=== PATIENT | female | born 1950 | race Caucasian/White ===

== ENCOUNTER 2016-04-15 09:12 | Outpatient (CLI) ==
[2016-03-20 15:54] VITALS: BMI 26.9
--- NOTE | 2016-04-15 09:55 | CT ---
EXAM: CT of the chest with contrast History: Tobacco use Comparison: Chest radiograph 03/20/2016 Technique: Multiplanar CT images through the thorax were obtained following administration of IV co ntrast Findings: Heart size is within normal limits. No pericardial effusion. Great vessels are unremark able. No pathologically enlarged thoracic lymph nodes. Moderate to severe emphysema. Biapical lung opacities, greater on the right most likely due to scar ring. No consolidated pneumonia. Calcified granulomas seen within the lungs. No pleural effusion and no pneumothorax. 5 mm left upper lobe lung nodule axial image 12. 5 mm left upper lobe lung no dule axial image 25. 5 mm lingular nodule axial image 38. Within the visualized upper abdomen, no acute findings. Atherosclerotic and soft plaque within the visualized abdominal aorta. Subacute appearing compression fracture at T5. Impression: 1. No evidence for pneumonia. 2. Moderate to severe emphysema. 3. Biapical lung scarring. 4. Indeterminate sub-centimeter left lung nodules. Recommend follow-up chest CT in 6 months. 6. Subacute appearing compression fracture at T5.
== END 2016-04-15 09:13 | disposition home or self-care (01) ==
LOC: RAD 09:12
PROVIDERS: ATTEND Nurse Practitioner Family
DX: R93.8 Abnormal findings on diagnostic imaging of other specified body structures (principal); Z72.0 Tobacco use

== ENCOUNTER 2016-05-01 17:18 | Inpatient (IN) ==
[2016-05-01] MEDS ORDERED: SOLU-MEDROL 125 MG IVP STA (17:23)
[2016-05-01] MEDS ORDERED: DUONEB NEB STA (17:23)
[2016-05-01] MEDS ORDERED: DUONEB NEB ONE (17:24)
[2016-05-01] MEDS ORDERED: ALBUTEROL 0.083% NEB NEB STA (17:33)
[2016-05-01] MEDS ORDERED: ALBUTEROL 0.083% NEB NEB ONE (17:34)
[2016-05-01] MEDS ORDERED: LASIX IVP STA (17:38)
[2016-05-01 17:40] LABS: ABG BASE EXCESS 0 (-2.0-2.0); ABG HCO3 26.4 (22.0-26.0); ABG PCO2 50.6 mmHg (35-45); ABG PH 7.325 (7.35-7.45); ABG TCO2 28 (22.0-28.0)
[2016-05-01 17:48] LABS: BASOPHILS # (AUTO) 0.1 K/uL (0-0.2); BASOPHILS % (AUTO) 0.6 % (0.0-3.0); EOSINOPHILS # (AUTO) 0.2 K/ul (0.0-0.7); EOSINOPHILS % (AUTO) 1.9 % (0.0-7.0); HEMATOCRIT 42.7 % (37.0-47.0); IMMATURE GRANULOCYTE % (AUTO) 0.3 % (0.0-5.0); MEAN CORPUSCULAR HEMOGLOBIN 26.8 pg (27.0-31.0); MEAN CORPUSCULAR HGB CONC 30.4 (31.8-35.4); MONOCYTES # (AUTO) 0.5 K/uL (0.4-2.0); MONOCYTES % (AUTO) 4.4 (0-10); NEUTROPHILS # (AUTO) 7.7 K/ul (2.0-6.9); NEUTROPHILS % (AUTO) 73.8; PLATELET COUNT 322 10^3/uL (140-440); RED BLOOD COUNT 4.85 10^6/ul (4.20-5.40); WHITE BLOOD COUNT 10.41 K/ul (4.6-10.2)
[2016-05-01 18:15] LABS: ALBUMIN 2.7 g/dL (3.4-5.0); ALBUMIN/GLOBULIN RATIO 0.73; ANION GAP 15.3; BILIRUBIN,TOTAL 0.27 mg/dL (0.00-1.20); BUN/CREATININE RATIO 14.77; CALCIUM 9.1 mg/dL (8.2-10.2); CREATININE 0.88 mg/dL (0.60-1.30); POTASSIUM 3.3 mmol/L (3.5-5.10); TOTAL PROTEIN 6.4 g/dL (5.8-8.1); TROPONIN I 0.045 ng/ml (0.0000-0.4000)
--- NOTE | 2016-05-01 18:26 | ED.PDOC ---
General ED Provider: Dr. NESSA AGUILAR Chief Complaint: Shortness of Air Stated Complaint: Pateint has a history of chronic lung disease and has had a recent CT scan of chest. Comes to the ER with shortness of breath over the past 2 days. She admits to smoking. Also compalins of a cough and has been on multiple antibiotics recently. Time Seen by Physician: 18:23 Mode of Arrival: Wheelchair Information Source: Patient, Family Exam Limitations: No limitations Primary Care Provider: JAMAR NUNEZ Nursing and Triage Documentation Reviewed and Agree: Yes Respiratory Complaint Exam - Respiratory Complaint/Exam Onset/Duration: 2 days Symptoms Are: Still present Timing: Constant Initial Severity: Moderate Current Severity: Severe Location: Chest Character: Reports: Productive cough Aggravating: Reports: URI, Passive smoke exposure, Weather Alleviating: Reports: None Associated Signs and Symptoms: Reports: Rapid breathing, Dyspnea. Denies: Chest pain, Sinus discomfort, Vomiting, Sore throat, Weight loss Cardiac Risk Factors: Reports: CAD, Smoking Pseudomonas Risk Factors: Reports: Chronic Lung Disease Status Asthmaticus Risk Factors: Reports: Recent steriods, Smoke exposure. Denies: Prior Intubation Home Oxygen Use: No Recent Stress Test: No Recent Echo/LV Function: No Current Antibiotic Use: No Current Asthma Medication Use: Yes Respiratory Distress: None Inadequate Respiratory Effort: No Dysphagia Present: No Stridor Present: No JVD Present: No Accessory Muscle Use: Yes Diminished Breath Sounds: No Sinus Tenderness: None Differential Diagnoses: COPD Exacerbation Review of Systems - Review Of Systems Constitutional: Reports: No symptoms Eyes: Reports: No symptoms Ears, Nose, Mouth, Throat: Reports: No symptoms Respiratory: Reports: Cough, Short of air, Wheezing Cardiac: Denies: Chest pain GI: Reports: No symptoms : Reports: No symptoms Musculoskeletal: Reports: No symptoms Skin: Reports: No symptoms Neurological: Reports: Anxiety Endocrine: Reports: No symptoms Hematologic/Lymphatic: Reports: No symptoms All Other Systems: Reviewed and Negative Past Medical History - Past Medical History Previously Healthy: No Endocrine: Reports: Hypothyroid Cardiovascular: Reports: Hypertension Respiratory: Reports: COPD Hematological: Reports: None Gastrointestinal: Reports: None Genitourinary: Reports: None Neuro/Psych: Reports: None Musculoskeletal: Reports: Arthritis Cancer: Reports: None Last Menstrual Period: NONE - Surgical History General Surgical History: Reports: Appendectomy, Unknown - Family History Family History: Reports: Unknown - Social History Smoking Status: Current every day smoker Hx Substance Use: No Alcohol Screening: None Physical Exam - Physical Exam Appearance: Ill-appearing, Thin Respiratory: Wheezes Cardiovascular: Tachycardia Psychiatric: Anxious Interpretation - Radiology Interpretation Radiology Interpretation By: ED Physician Radiology Results: Negative Exam Interpreted: Portable CXR - EKG Interpretation Time of EKG #1: 17:49 Rate: Tachy Rhythm: Sinus Ectopy: None Gackle: Right ST Segment: Normal Interpretation: Pulmonary disease partten. Re-Evaluation - Re-Evaluation Time of Re-Evaluation: 18:49 Status: Improved Vital Signs Stable: Yes (106/74, Sat 96% 2 L) Appearance: NAD Lungs: Other (mild wheezing. better than prior) Physician Notification - Case Discussed Physician Notified: Dr Becerra Time of Notification: 18:30 (Ok to Admit ) Critical Care Note - Critical Care Note Total Time (mins): 30 Course - Course Hematology/Chemistry: 05/04/16 04:39 05/04/16 04:39 Orders, Labs, Meds: Lab Review 05/01/16 05/01/16 17:23 17:45 WBC 10.41 H RBC 4.85 Hgb 13.0 Hct 42.7 MCV 88.0 MCH 26.8 L MCHC 30.4 L RDW Coeff of Eze 15.5 H Plt Count 322 Immature Gran % (Auto) 0.3 Neut % (Auto) 73.8 Lymph % (Auto) 19.0 Dare % (Auto) 4.4 Eos % (Auto) 1.9 Baso % (Auto) 0.6 Immature Gran # (Auto) 0.0 Neut # 7.7 H Lymph # 2.0 Dare # 0.5 Eos # 0.2 Baso # 0.1 Puncture Site Lrad O2 Saturation 99.0 ABG pH 7.325 L ABG pCO2 50.6 H ABG pO2 148.0 H ABG HCO3 26.4 H ABG Total CO2 28 ABG Base Excess 0 Darrin Test + O2 Delivery Device Neb Oxygen Liter Flow 8.00 Sodium 137 Potassium 3.3 L Chloride 100 Carbon Dioxide 25 Anion Gap 15.3 BUN 13 Creatinine 0.88 Estimated GFR (MDRD) 65.00 BUN/Creatinine Ratio 14.77 Glucose 312 H Calcium 9.1 Total Bilirubin 0.27 AST 17 ALT 14 Alkaline Phosphatase 98 Total Creatine Kinase 54 Troponin I 0.0450 B-Natriuretic Peptide 98 Total Protein 6.4 Albumin 2.7 L Globulin 3.7 Albumin/Globulin Ratio 0.73 Orders Category Date Time Status ADMIT PATIENT INPATIENT .TO SCU (MONITORED BED) ADMISSION 05/01/16 18:37 Completed ABG DRAW REQUEST Stat CARDIO 05/01/16 17:23 Completed EKG-(ED ONLY) Stat CARDIO 05/01/16 17:22 Completed NEBULIZER TREATMENT Routine CARDIO 05/01/16 17:34 Completed NEBULIZER TREATMENT Stat CARDIO 05/01/16 17:23 Completed NEBULIZER TREATMENT Stat CARDIO 05/01/16 17:34 Completed ACTIVITY .Up ad Maliha CARE 05/01/16 18:38 Active INTAKE & OUTPUT Q8HR CARE 05/01/16 18:37 Completed TELEMETRY MONITORING TELE CARE 05/01/16 18:38 Active VITAL SIGNS Q4HR CARE 05/01/16 18:38 Active REGULAR DIET DIETARY 05/01/16 Breakfast Ordered ABG Stat LAB 05/01/16 17:23 Completed B-TYPE NATRIURETIC PEPTIDE Stat LAB 05/01/16 17:45 Completed BASIC METABOLIC PANEL DAILY@0600 LAB 05/02/16 04:53 Completed BASIC METABOLIC PANEL DAILY@0600 LAB 05/03/16 04:26 Completed BASIC METABOLIC PANEL DAILY@0600 LAB 05/04/16 04:39 Completed BASIC METABOLIC PANEL DAILY@0600 LAB 05/05/16 06:00 Ordered CBC W/ AUTO DIFF DAILY@0600 LAB 05/02/16 04:53 Completed CBC W/ AUTO DIFF DAILY@0600 LAB 05/03/16 04:26 Completed CBC W/ AUTO DIFF DAILY@0600 LAB 05/04/16 04:39 Completed CBC W/ AUTO DIFF DAILY@0600 LAB 05/05/16 06:00 Ordered CBC W/ AUTO DIFF Stat LAB 05/01/16 17:45 Completed COMPREHENSIVE METABOLIC PANEL Stat LAB 05/01/16 17:45 Completed CREATINE KINASE Stat LAB 05/01/16 17:45 Completed TROPONIN I Stat LAB 05/01/16 17:45 Completed Acetaminophen [Tylenol] MEDS 05/01/16 18:37 Active 650 mg PO Q4H PRN Albuterol Sulfate 0.083% Neb [Albuterol 0.083% Neb] MEDS 05/01/16 17:34 Discontinued 4 vial NEB .STK-MED ONE Albuterol Sulfate 0.083% Neb [Albuterol 0.083% Neb] MEDS 05/01/16 17:33 Discontinued 4 vial NEB ONCE STA Atorvastatin Calcium [Lipitor] MEDS 05/02/16 09:00 Active 10 mg PO DAILY Azithromycin [Zithromax] MEDS 05/02/16 18:40 Active 250 mg PO DAILY Azithromycin [Zithromax] MEDS 05/01/16 18:37 Discontinued 500 mg PO ONCE STA Budesonide/Formoterol Fumarate [Symbicort 160-4.5 Mcg MEDS 05/01/16 21:00 Active Inhaler] 2 puff IH BID Enoxaparin Sodium [Lovenox] MEDS 05/02/16 09:00 Active 40 mg SUBCUT DAILY Furosemide [Lasix] MEDS 05/01/16 17:38 Discontinued 20 mg IVP ONCE STA Hydroxychloroquine Sulfate [Hydroxychloroquine Sulfate] MEDS 05/01/16 21:00 Discontinued 200 mg PO BID Ipratropium/Albuterol Neb [Duoneb] MEDS 05/01/16 17:24 Discontinued 1 vial NEB .STK-MED ONE Ipratropium/Albuterol Neb [Duoneb] MEDS 05/01/16 17:23 Discontinued 1 vial NEB ONCE STA Levothyroxine Sodium [Synthroid] MEDS 05/02/16 09:00 Discontinued 88 mcg PO DAILY Lisinopril [Zestril] MEDS 05/02/16 09:00 Active 10 mg PO DAILY Methylprednisolone Sod Succ/Pf [Solu-Medrol 125 mg] MEDS 05/01/16 17:23 Discontinued 125 mg IVP ONCE STA Methylprednisolone Sod Succ/Pf [Solu-Medrol 125 mg] MEDS 05/01/16 21:00 Discontinued 125 mg IVP Q8HR Morphine Sulfate [Morphine 2 mg/ml Syringe] MEDS 05/01/16 18:37 Active 2 mg IVP Q4H PRN Ondansetron HCl/Pf [Zofran 4 mg/2 ml] MEDS 05/01/16 18:37 Active 4 mg IVP Q6H PRN Ranitidine HCl [Zantac] MEDS 05/02/16 06:30 Active 150 mg PO BIDAC RESUSCITATION STATUS Routine OTHERS 05/01/16 18:37 Ordered CHEST, 1V AP ONLY Stat RADS 05/01/16 17:22 Completed Medications Generic Name Dose Route Start Last Admin Trade Name Freq PRN Reason Stop Dose Admin Acetaminophen 650 mg 05/01/16 18:37 Tylenol PO Q4H PRN Fever >101 Albuterol/Ipratropium 1 vial 05/01/16 18:45 Duoneb NEB RTQ2H PRN Wheezing Albuterol/Ipratropium 1 vial 05/01/16 20:00 05/04/16 14:17 Duoneb NEB 1 vial RTQID ESTRELLA Administration Atorvastatin Calcium 10 mg 05/02/16 09:00 05/04/16 08:45 Lipitor PO 10 mg DAILY ESTRELLA Administration Azithromycin 250 mg 05/02/16 18:40 05/04/16 08:45 Zithromax PO 05/05/16 09:01 250 mg DAILY ESTRELLA Administration Budesonide/Formoterol Fumarate 2 puff 05/01/16 21:00 05/04/16 08:44 Symbicort 160-4.5 Mcg Inhaler IH 2 puff BID ESTRELLA Administration Enoxaparin Sodium 40 mg 05/02/16 09:00 05/04/16 08:44 Lovenox SUBCUT 40 mg DAILY ESTRELLA Administration Hydroxychloroquine Sulfate 200 mg 05/02/16 09:00 05/04/16 08:45 Plaquenil PO 200 mg BID ESTRELLA Administration Ceftriaxone Sodium 1 gm/ 50 mls @ 75 mls/hr 05/04/16 09:00 05/04/16 08:44 Sodium Chloride IV 75 mls/hr DAILY ESTRELLA Administration Insulin Human Regular 0 unit 05/03/16 09:04 05/04/16 16:59 Humulin R SUBCUT 4 unit PRN PRN Administration hyperglycemia Protocol Leflunomide 20 mg 05/02/16 09:00 05/04/16 08:45 Arava PO 20 mg DAILY ESTRELLA Administration Levothyroxine Sodium 88 mcg 05/02/16 06:30 05/04/16 06:09 Synthroid PO 88 mcg QDAC ESTRELLA Administration Lisinopril 10 mg 05/02/16 09:00 05/04/16 08:45 Zestril PO 10 mg DAILY ESTRELLA Administration Methylprednisolone Sodium Succinate 80 mg 05/04/16 09:39 05/04/16 13:06 Solu-Medrol 125 Mg IVP 80 mg Q8HR ESTRELLA Administration Morphine Sulfate 2 mg 05/01/16 18:37 05/02/16 20:38 Morphine 2 Mg/Ml Syringe IVP 2 mg Q4H PRN Administration Severe Pain Ondansetron HCl 4 mg 05/01/16 18:37 Zofran 4 Mg/2 Ml IVP Q6H PRN Nausea / Vomiting Ranitidine HCl 150 mg 05/02/16 06:30 05/04/16 17:00 Zantac PO 150 mg BIDAC ESTRELLA Administration Sodium Chloride 1 syr 05/02/16 05:00 05/04/16 13:06 Saline Flush IVF 1 syr Q8HR ESTRELLA Administration Discontinued Medications Generic Name Dose Route Start Last Admin Trade Name Freq PRN Reason Stop Dose Admin Albuterol Sulfate 4 vial 05/01/16 17:33 05/01/16 17:46 Albuterol 0.083% Neb NEB 05/01/16 17:34 Not Given ONCE STA Albuterol/Ipratropium 1 vial 05/01/16 17:23 05/01/16 17:43 Duoneb NEB 05/01/16 17:24 Not Given ONCE STA Azithromycin 500 mg 05/01/16 18:37 05/01/16 20:33 Zithromax PO 05/01/16 18:38 500 mg ONCE STA Administration Furosemide 20 mg 05/01/16 17:38 05/01/16 17:45 Lasix IVP 05/01/16 17:39 20 mg ONCE STA Administration Ceftriaxone Sodium 1 gm/ 100 mls @ 100 mls/hr 05/02/16 14:30 05/03/16 08:50 Sodium Chloride IV 100 mls/hr DAILY ESTRELLA Administration Levothyroxine Sodium 88 mcg 05/02/16 09:00 Synthroid PO DAILY ESTRELLA Magnesium Citrate 5 oz 05/03/16 12:36 05/04/16 07:19 Citrate Of Magnesia PO 05/03/16 12:37 Not Given ONCE ONE Methylprednisolone Sodium Succinate 125 mg 05/01/16 17:23 05/01/16 17:33 Solu-Medrol 125 Mg IVP 05/01/16 17:24 125 mg ONCE STA Administration Methylprednisolone Sodium Succinate 125 mg 05/01/16 21:00 05/04/16 04:27 Solu-Medrol 125 Mg IVP 125 mg Q8HR ESTRELLA Administration Non-Formulary Medication 200 mg 05/01/16 21:00 Hydroxychloroquine Sulfate [Hydroxychloroquine Sulfate] PO BID ESTRELLA Non-Formulary Medication 200 mg 05/01/16 21:00 05/01/16 20:49 Hydroxychloroquine Sulfate [Hydroxychloroquine Sulfate] PO 200 mg BID ESTRELLA Administration Ranitidine HCl 150 mg 05/01/16 20:12 05/01/16 20:31 Zantac PO 05/01/16 20:13 150 mg ONCE STA Administration Tramadol HCl 50 mg 05/01/16 20:11 05/01/16 20:31 Ultram PO 05/01/16 20:12 50 mg ONCE STA Administration Vital Signs: Temp Pulse Resp BP Pulse Ox 05/01/16 17:19 97.6 F 120 H 26 H 157/114 H 80 L Departure - Departure Time of Disposition: 18:49 Disposition: ADMITTED INPATIENT Discharge Problem: COPD with acute exacerbation Condition: Fair Pt referred to PMD for follow-up: No (Admitted ) Allergies/Adverse Reactions: Allergies Penicillins Allergy (Severe, Verified 05/01/16 17:23) rash Pt to get medical alert necklace Home Medications: Ambulatory Orders Hydroxychloroquine Sulfate 200 mg PO BID 03/02/16 Leflunomide [Arava] 20 mg PO DAILY 03/02/16 Ipratropium/Albuterol Neb [Duoneb] 1 vial NEB RTQ8H #30 vial.neb 03/20/16 Tramadol HCl [Ultram] 50 mg PO BID 05/01/16 Disposition Discussed With: Patient, Family
[2016-05-01] MEDS ORDERED: TYLENOL PO PRN (18:37)
[2016-05-01] MEDS ORDERED: ZOFRAN 4 MG/2 ML IVP PRN (18:37)
[2016-05-01] MEDS ORDERED: ZITHROMAX PO STA (18:37)
[2016-05-01] MEDS ORDERED: DUONEB NEB PRN (18:45)
[2016-05-01] MEDS: DUONEB NEB SCH (19:30)
[2016-05-01] MEDS: SOLU-MEDROL 125 MG IVP SCH (20:09)
[2016-05-01] MEDS ORDERED: ULTRAM PO STA (20:11)
[2016-05-01] MEDS ORDERED: ZANTAC PO STA (20:12)
[2016-05-01 20:13] VITALS: BMI 31.1
--- NOTE | 2016-05-01 20:17 | DI ---
EXAM: Single view of the chest. History: Short of breath Comparison: Chest radiograph 03/20/2016 Findings: Heart size is normal. No focal consolidation. No appreciable pleural fluid and no pneum othorax. No acute osseous abnormalities. Calcified granulomas again seen within the thorax. Emphy sema and biapical scarring again noted. Impression: No acute cardiopulmonary process. Emphysema.
[2016-05-01] MEDS: MORPHINE 2 MG/ML SYRINGE IVP PRN (20:30)
[2016-05-01] MEDS: SYMBICORT 160-4.5 MCG INHALER IH SCH (20:31)
[2016-05-01] MEDS ORDERED: HYDROXYCHLOROQUINE SULFATE 200 MG PO SCH ×2 (21:00)
[2016-05-02 04:54] LABS: BASOPHILS % (AUTO) 0.4 % (0.0-3.0); HEMATOCRIT 38.9 % (37.0-47.0); HEMOGLOBIN 11.9 g/dl (12.0-16.0); IMMATURE GRANULOCYTE % (AUTO) 0.2 % (0.0-5.0); LYMPHOCYTES # (AUTO) 0.7 K/uL (0.60-3.4); LYMPHOCYTES % (AUTO) 14.9 (10.0-50.0); MEAN CORPUSCULAR HEMOGLOBIN 26.9 pg (27.0-31.0); MEAN CORPUSCULAR HGB CONC 30.6 (31.8-35.4); MEAN CORPUSCULAR VOLUME 87.8 fl (81.0-99.0); MONOCYTES # (AUTO) 0.1 K/uL (0.4-2.0); MONOCYTES % (AUTO) 1.3 (0-10); NEUTROPHILS # (AUTO) 3.8 K/ul (2.0-6.9); NEUTROPHILS % (AUTO) 83.2; PLATELET COUNT 285 10^3/uL (140-440); RED BLOOD COUNT 4.43 10^6/ul (4.20-5.40); WHITE BLOOD COUNT 4.55 K/ul (4.6-10.2)
[2016-05-02 05:12] LABS: ANION GAP 13.7; BUN/CREATININE RATIO 20.83; CALCIUM 8.9 mg/dL (8.2-10.2); CREATININE 0.72 mg/dL (0.60-1.30); POTASSIUM 3.7 mmol/L (3.5-5.10)
[2016-05-02] MEDS: DUONEB NEB SCH ×4 (05:34→19:18)
[2016-05-02] MEDS: SOLU-MEDROL 125 MG IVP SCH ×3 (05:44→20:38)
[2016-05-02] MEDS: ZANTAC PO SCH ×2 (05:45→16:49)
[2016-05-02] MEDS: SYNTHROID PO SCH (05:45)
[2016-05-02] MEDS ORDERED: LEFLUNOMIDE 20 MG PO SCH (09:00)
[2016-05-02] MEDS ORDERED: SYNTHROID PO SCH (09:00)
[2016-05-02] MEDS: ARAVA PO SCH (09:21)
[2016-05-02] MEDS: ZESTRIL PO SCH (09:22)
[2016-05-02] MEDS: PLAQUENIL PO SCH ×2 (09:22→20:37)
[2016-05-02] MEDS: LIPITOR PO SCH (09:22)
[2016-05-02] MEDS: LOVENOX SUBCUT SCH (09:23)
[2016-05-02] MEDS: SYMBICORT 160-4.5 MCG INHALER IH SCH ×2 (09:23→20:38)
[2016-05-02] MEDS ORDERED: ROCEPHIN ONE (14:18)
[2016-05-02] MEDS: ROCEPHIN 1 GM in SODIUM CHLORIDE 100 ML IV SCH (14:30)
[2016-05-02] MEDS ORDERED: SODIUM CHLORIDE 50 ML IV ONE (14:30)
[2016-05-02] MEDS: ZITHROMAX PO SCH (17:43)
[2016-05-02] MEDS: MORPHINE 2 MG/ML SYRINGE IVP PRN (20:38)
[2016-05-03 04:30] LABS: BASOPHILS % (AUTO) 0.1 % (0.0-3.0); HEMATOCRIT 37.5 % (37.0-47.0); HEMOGLOBIN 11.6 g/dl (12.0-16.0); IMMATURE GRANULOCYTE % (AUTO) 1.2 % (0.0-5.0); LYMPHOCYTES # (AUTO) 1.2 K/uL (0.60-3.4); LYMPHOCYTES % (AUTO) 7.1 (10.0-50.0); MEAN CORPUSCULAR HEMOGLOBIN 26.9 pg (27.0-31.0); MEAN CORPUSCULAR HGB CONC 30.9 (31.8-35.4); MONOCYTES # (AUTO) 0.3 K/uL (0.4-2.0); MONOCYTES % (AUTO) 1.8 (0-10); NEUTROPHILS # (AUTO) 15.2 K/ul (2.0-6.9); NEUTROPHILS % (AUTO) 89.8; PLATELET COUNT 319 10^3/uL (140-440); RED BLOOD COUNT 4.31 10^6/ul (4.20-5.40); WHITE BLOOD COUNT 16.96 K/ul (4.6-10.2)
[2016-05-03 04:50] LABS: ANION GAP 12.1; BUN/CREATININE RATIO 17.8; CREATININE 0.73 mg/dL (0.60-1.30); POTASSIUM 4.1 mmol/L (3.5-5.10)
[2016-05-03] MEDS: SOLU-MEDROL 125 MG IVP SCH ×3 (05:22→20:33)
[2016-05-03] MEDS: SYNTHROID PO SCH (05:31)
[2016-05-03] MEDS: ZANTAC PO SCH ×2 (05:31→16:39)
[2016-05-03] MEDS: DUONEB NEB SCH ×4 (05:52→18:59)
[2016-05-03] MEDS: SYMBICORT 160-4.5 MCG INHALER IH SCH ×2 (08:50→20:34)
[2016-05-03] MEDS: ROCEPHIN 1 GM in SODIUM CHLORIDE 100 ML IV SCH (08:50)
[2016-05-03] MEDS: ZESTRIL PO SCH (08:51)
[2016-05-03] MEDS: ARAVA PO SCH (08:51)
[2016-05-03] MEDS: LIPITOR PO SCH (08:51)
[2016-05-03] MEDS: PLAQUENIL PO SCH ×2 (08:51→20:33)
[2016-05-03] MEDS: LOVENOX SUBCUT SCH (08:51)
[2016-05-03] MEDS: ZITHROMAX PO SCH (08:51)
[2016-05-03] MEDS ORDERED: CITRATE OF MAGNESIA PO STA (09:01)
--- NOTE | 2016-05-03 10:17 | DI ---
EXAM: Chest two views HISTORY: Shortness of air, cough COMPARISON: 05/07/2016 TECHNIQUE: Two views of the chest were performed FINDINGS: There is emphysematous change with biapical scarring. No airspace consolidation. Granul omatous calcification. There is no pleural effusion or pneumothorax. The heart is normal in size. The mediastinal contour is unchanged, noting atherosclerosis. There are no acute abnormalities of the bones. Since the prior study, there has been no significant interval change. IMPRESSION: No acute cardiopulmonary process. Emphysema.
--- NOTE | 2016-05-03 11:12 | HP ---
DATE OF SERVICE: 05/01/16 CHIEF COMPLAINT: Coughing, congestion and shortness of breath. HISTORY OF PRESENT ILLNESS: This is a 65 year old female with a history of chronic obstructive pulmonary disease who had been coughing with congestion for 12 days. She was getting worse. Gradually the shortness of breath and yellow- green phlegm. She was feeling weak and tired and taking breathing treatments extra, but not getting better. She came to the emergency room as the patient's condition was getting worse. She was seen by Dr. Salguero. Initial ABG showed a pH of 7.325, PCO2 50.6, PO2 148. Chest x-ray showed the chronic obstructive pulmonary disease and emphysema, no infiltrates. Dr. Salguero gave her a breathing treatment and Albuterol and Solu-Medrol 125 mg, Lasix 20 mg IV push. Still the patient was short of breath and not able to move much air. At that time, the patient was admitted to the hospital with COPD exacerbation and bronchitis. REVIEW OF SYSTEMS: Weakness, tiredness, shortness of breath, cough, congestion and getting up a little green phlegm. CONSTITUTIONAL: No fever, no chills. HEENT: Normal. ENDOCRINE: No weight gain; no weight loss. CVS: No chest pain. No PND, no orthopnea. No shortness of breath. RESPIRATORY: No cough, no congestion. No hemoptysis. GI: No nausea, no vomiting. No abdominal pain. No melena. : No hematuria. No polyuria. MUSCULOSKELETAL: No joint swelling. PSYCHIATRIC: Not anxious. No depression. No suicidal thoughts. No homicidal thoughts. SKIN: Intact, no open lesions. PAST MEDICAL HISTORY: Hypertension Chronic obstructive pulmonary disease History of pneumonia GERD Rheumatoid arthritis Osteoarthritis Hypothyroidism Nicotine use PAST SURGICAL HISTORY: Appendectomy Cataract surgery PERSONAL HISTORY: Does smoke a pack and a half a day. No alcohol and no drugs. FAMILY HISTORY: Significant for diabetes. MEDICATIONS: Zantac, Lipitor, Symbicort, Levothyroxine, Albuterol, Arava, Hydroxychloroquine , Lisinopril, DuoNeb and Tramadol. ALLERGIES: Penicillin, had rash 35 years ago. PHYSICAL EXAMINATION: V/S: Blood pressure 157/114, respiratory rate 26, saturation on room air was 80% . Pulse 120, temperature 97.6 HEENT: Atraumatic, normocephalic. Mucosa dry. No scleral icterus. Pallor positive. NECK: Supple. No JVD, no bruit. No lymphadenopathy. No thyromegaly. HEART: S1, S2 normal. No murmur. No cyanosis or clubbing. No ascites. LUNGS: Decreased and clear. Basilar crackles. Expiratory wheeze, diffuse. No rales or rhonchi. ABDOMEN: Soft, nontender. Bowel sounds are active. No CVA tenderness. No rigidity or guarding. EXTREMITIES: No cyanosis, clubbing or pedal edema. MUSCULOSKELETAL: Upper extremity deformities from the rheumatoid arthritis. NEUROLOGIC: The patient is awake, alert, oriented times three. SKIN: Intact; no open lesions. LYMPHATIC: No lymph nodes palpable. LABS: White count 10.41, hemoglobin 13.0, hematocrit 42.7, platelet count 322, sodium 137, potassium 3.7, chloride 100, bicarb 25, BUN 13, creatinine 0.88, glucose 312, BNP 98. ABG with pH 7.325, PCO2 50.6, PO2 148. ASSESSMENT: 1. CHRONIC OBSTRUCTIVE PULMONARY DISEASE EXACERBATION SECONDARY TO BRONCHITIS 2. NEW ONSET DIABETES 3. HISTORY OF HYPERTENSION 4. DYSLIPIDEMIA 5. RHEUMATOID ARTHRITIS 6. OSTEOARTHRITIS 7. HYPOTHYROIDISM 8. GERD PLAN: 1. Admit the patient to the regular floor. 2. CBC, CMP today and daily. 3. Cardiac enzymes, plus Troponin. 4. Lovenox for DVT prophylaxis. 5. Solu-Medrol 125 mg every 8 hours. 6. Zithromycin 1 gram daily. 7. Daily I & O's. 8. Will follow up with the patient in daily rounds. Time spent on the patient is more than 45 minutes today. NICOLD
--- NOTE | 2016-05-03 11:19 | PN ---
DATE OF SERVICE: 05/02/16 SUBJECTIVE: The patient is sitting in the bed, still has cough and congestion but there is less shortness of breath with exertion. REVIEW OF SYSTEMS: CONSTITUTIONAL: No fever, no chills. HEENT: Normal. ENDOCRINE: No weight gain, no weight loss. CVS: No angina symptoms. No CHF symptoms. No palpitations. No atypical chest pain for CAD. Less shortness of breath. No PND, no orthopnea. RESPIRATORY: No cough, no hemoptysis. GI: No nausea, no vomiting. No abdominal pain. : No hematuria. No polyuria. MUSCULOSKELETAL:. No joint swelling. PSYCHIATRIC: Not anxious. No depression. No suicidal thoughts. No homicidal thoughts. SKIN: Intact. No rash. PHYSICAL EXAMINATION: V/S: Blood pressure 116/73, respiratory rate 18, heart rate 104 and temperature 97.8%. HEENT: Normocephalic, atraumatic. Ears, eyes, nose and throat normal. Mucosa dry. Pallor positive. No icterus. NECK: Supple. No JVD, no carotid bruit. No lymphadenopathy. LUNGS: Decreased with basilar crackles and expiratory wheeze is present. No rales or rhonchi. HEART: S1, S2 normal. No S3. No murmur, gallop or regurgitation. ABDOMEN: Soft, nontender. Bowel sounds active. No rigidity. No rebound or guarding. No CVA tenderness. EXTREMITIES: No clubbing, cyanosis or pedal edema. MUSCULOSKELETAL: No joint swelling. NEUROLOGIC: Awake, alert, oriented times three. No focal deficit. LYMPHATIC: No lymph nodes palpable. SKIN: Intact. LABS: Sodium 139, potassium 3.7, chloride 100, bicarb 27, BUN 15, glucose 197, WBC 4.55, hgb 11.9, hct 38.9 and plt count 285. ASSESSMENT: 1. COPD exacerbation secondary to the bronchitis 2. New onset diabetes 3. Hypertension 4. Hypothyroidism 5. Osteoarthritis 6. Rheumatoid arthritis PLAN: 1. Will go ahead and check HPA1c with tomorrow mornings labs 2. Start the Rocephin as patient has allergy 35 years ago with the hives 3. Continue the DUO NEBS 4. Out of bed to chair 5. Accu-checks with coverage. TIME SPENT: More than 30 minutes MTDD
[2016-05-03] MEDS: HUMULIN R SUBCUT PRN ×3 (11:30→20:43)
[2016-05-03] MEDS ORDERED: CITRATE OF MAGNESIA PO ONE (12:36)
--- NOTE | 2016-05-03 14:54 | PCM.PROG ---
Attending Provider: ATTENDING PROVIDER: Dr. JAMAR EASTMAN DATE OF SERVICE: 05/03/16 SUBJECTIVE: This 65 year old WHITE/ F was hospitalized 05/01/16. The patient is admitted with COPD exacerbation. No more coughing. The patient complains that she has not had a bowel movement since . Will give Mag Citrate. Sugars have been elevated so will give sliding scale. A1C is normal. REVIEW OF SYSTEMS: CONSTITUTIONAL: No fever, no chills. ENDOCRINE: No weight loss or weight gain. HEENT: No sinus drainage, no sore throat. CVS: No angina symptoms. No CHF symptoms. No palpitations. No atypical chest pain for CAD. Shortness of breath with minimal exertion. RESPIRATORY: No cough, no hemoptysis. GI: No melena. No abdominal pain. No nausea, no vomiting. Constipation. : No hematuria. No polyuria. SKIN: No rash. No wounds. MUSCULOSKELETAL: Generalized aches and pains from rheumatoid arthritis. ROCKET ENGINE TESTER: No blackout, no dizziness. No headache. No double vision. PSYCHIATRIC: Not anxious; no depression. No suicidal thoughts. No homicidal thoughts. PHYSICAL EXAMINATION: GENERAL: Lying in bed in no distress. VITAL SIGNS: Temperature 97.1 F, Pulse 92, Respiratory Rate 15, BP 106/70, Pulse Ox 99% HEENT: Normocephalic, atraumatic. Mucosa is dry, pallor positive. NECK: No JVP, no carotid bruit. No lymphadenopathy. CARDIAC: S1, S2, no S3. No murmur, gallop or regurgitation. LUNGS: Decreased entry with wheezing bilaterally. ABDOMEN: Soft, non-tender. Bowel sounds active. No rigidity, guarding or CVA tenderness. EXTREMITIES: No clubbing, cyanosis or edema. Upper extremity deformities from rheumatoid arthritis. NEUROLOGIC: Awake, alert and oriented x3. LYMPHATIC: No palpable lymph nodes SKIN: Not dry. Intact. MUSCULOSKELETAL: No joint swelling. LAB REVIEW: 05/03/16 04:26 05/03/16 04:26 05/03/16 04:26: WBC 16.96 H D, RBC 4.31, Hgb 11.6 L, Hct 37.5, MCV 87.0, MCH 26.9 L, MCHC 30.9 L, RDW Coeff of Eze 15.7 H, Plt Count 319, Immature Gran % ( Auto) 1.2, Neut % (Auto) 89.8, Lymph % (Auto) 7.1 L, [place] % (Auto) 1.8, Eos % ( Auto) 0.0, Baso % (Auto) 0.1, Immature Gran # (Auto) 0.2, Neut # 15.2 H, Lymph # 1.2, [place] # 0.3 L, Eos # 0.0, Baso # 0.0, Sodium 138, Potassium 4.1, Chloride 101, Carbon Dioxide 29, Anion Gap 12.1, BUN 13, Creatinine 0.73, Estimated GFR ( MDRD) 81.00, BUN/Creatinine Ratio 17.80, Glucose 209 H, Hemoglobin A1c 5.6, Calcium 9.0 ASSESSMENT: 1. COPD exacerbation secondary to bronchitis. 2. Constipation 3. Hypertension 4. Dyslipidemia 5. Osteoarthritis 6. Rheumatoid arthritis PLAN: 1. Magnesium Citrate 2. Continue Rocephin, Solu-Medrol and Duonebs 3. Chest x-ray tomorrow in the a.m. 4. Sliding scale insulin Plan and coordination of the patient's care discussed in the presence of Certified Coder and nurse. CONDITION: Stable SCRIBED BY: FIORELLA OREILLY, Leadlighter scribed while in presence of service performed by Dr. JAMAR EASTMAN on 05/03/16 ([id number])
[2016-05-04] MEDS: SOLU-MEDROL 125 MG IVP SCH ×3 (04:27→20:15)
[2016-05-04 04:41] LABS: BASOPHILS % (AUTO) 0.1 % (0.0-3.0); HEMATOCRIT 36.1 % (37.0-47.0); HEMOGLOBIN 10.9 g/dl (12.0-16.0); IMMATURE GRANULOCYTE % (AUTO) 0.8 % (0.0-5.0); LYMPHOCYTES % (AUTO) 6.2 (10.0-50.0); MEAN CORPUSCULAR HEMOGLOBIN 26.5 pg (27.0-31.0); MEAN CORPUSCULAR HGB CONC 30.2 (31.8-35.4); MEAN CORPUSCULAR VOLUME 87.8 fl (81.0-99.0); MONOCYTES # (AUTO) 0.3 K/uL (0.4-2.0); MONOCYTES % (AUTO) 2.2 (0-10); NEUTROPHILS # (AUTO) 14.2 K/ul (2.0-6.9); NEUTROPHILS % (AUTO) 90.7; PLATELET COUNT 322 10^3/uL (140-440); RED BLOOD COUNT 4.11 10^6/ul (4.20-5.40); WHITE BLOOD COUNT 15.66 K/ul (4.6-10.2)
[2016-05-04 05:02] LABS: ANION GAP 10.8; BUN/CREATININE RATIO 22.97; CREATININE 0.74 mg/dL (0.60-1.30); POTASSIUM 3.8 mmol/L (3.5-5.10)
[2016-05-04] MEDS: DUONEB NEB SCH ×4 (05:25→20:34)
[2016-05-04] MEDS: HUMULIN R SUBCUT PRN ×4 (05:35→20:48)
[2016-05-04] MEDS: SYNTHROID PO SCH (06:09)
[2016-05-04] MEDS: ZANTAC PO SCH ×2 (06:09→17:00)
[2016-05-04] MEDS: SYMBICORT 160-4.5 MCG INHALER IH SCH ×2 (08:44→20:15)
[2016-05-04] MEDS: LOVENOX SUBCUT SCH (08:44)
[2016-05-04] MEDS: ROCEPHIN 1 GM in SODIUM CHLORIDE 50 ML IV SCH (08:44)
[2016-05-04] MEDS: LIPITOR PO SCH (08:45)
[2016-05-04] MEDS: ZESTRIL PO SCH (08:45)
[2016-05-04] MEDS: ZITHROMAX PO SCH (08:45)
[2016-05-04] MEDS: PLAQUENIL PO SCH ×2 (08:45→20:14)
[2016-05-04] MEDS: ARAVA PO SCH (08:45)
--- NOTE | 2016-05-04 10:09 | PCM.PROG ---
Attending Provider: ATTENDING PROVIDER: Dr. JAMAR EASTMAN DATE OF SERVICE: 05/04/16 SUBJECTIVE: This 65 year old WHITE/ F was hospitalized 05/01/16. The patient states she is breathing better. She has a mild cough, which is nonproductive. Chest x-ray shows no pneumonia. The daughter is in the room. The patient was asked if she had been up walking and both she and the daughter stated that she had been up; however, is unsteady on her feet, especially when she gets short of breath. Saturation is 94% without oxygen at rest. REVIEW OF SYSTEMS: CONSTITUTIONAL: No fever, no chills. ENDOCRINE: No weight loss or weight gain. HEENT: No sinus drainage, no sore throat. CVS: No angina symptoms. No CHF symptoms. No palpitations. No atypical chest pain for CAD. Shortness of breath is less. RESPIRATORY: Mild cough, no hemoptysis. GI: No melena. No abdominal pain. No nausea, no vomiting. : No hematuria. No polyuria. SKIN: No rash. No wounds. MUSCULOSKELETAL: Generalized pain due to rheumatoid arthritis. 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 No headache. No double vision. PSYCHIATRIC: Not anxious; no depression. No suicidal thoughts. No homicidal thoughts. PHYSICAL EXAMINATION: GENERAL: Lying in bed in no distress. VITAL SIGNS: Temperature 97.8 F, Pulse 95, Respiratory Rate 18, BP 150/86, Pulse Ox 95% HEENT: Normocephalic, atraumatic. Mucosa is dry, pallor positive. NECK: No JVP, no carotid bruit. No lymphadenopathy. CARDIAC: S1, S2, no S3. No murmur, gallop or regurgitation. LUNGS: Decreased entry with expiratory wheeze. ABDOMEN: Soft, non-tender. Bowel sounds active. No rigidity, guarding or CVA tenderness. EXTREMITIES: No clubbing, cyanosis or edema. NEUROLOGIC: Awake, alert and oriented x3. Gait is unsteady. LYMPHATIC: No palpable lymph nodes SKIN: Not dry. Intact. MUSCULOSKELETAL: No joint swelling. LAB REVIEW: 05/04/16 04:39 05/04/16 04:39 05/04/16 04:39: WBC 15.66 H, RBC 4.11 L, Hgb 10.9 L, Hct 36.1 L, MCV 87.8, MCH 26.5 L, MCHC 30.2 L, RDW Coeff of Eze 15.8 H, Plt Count 322, Immature Gran % ( Auto) 0.8, Neut % (Auto) 90.7, Lymph % (Auto) 6.2 L, Saline % (Auto) 2.2, Eos % ( Auto) 0.0, Baso % (Auto) 0.1, Immature Gran # (Auto) 0.1, Neut # 14.2 H, Lymph # 1.0, Saline # 0.3 L, Eos # 0.0, Baso # 0.0, Sodium 138, Potassium 3.8, Chloride 103, Carbon Dioxide 28, Anion Gap 10.8, BUN 17, Creatinine 0.74, Estimated GFR ( MDRD) 79.00, BUN/Creatinine Ratio 22.97, Glucose 206 H, Calcium 9.0 ASSESSMENT: 1. COPD exacerbation secondary to bronchitis 2. Constipation 3. Hypertension 4. Dyslipidemia 5. Osteoarthritis 6. Rheumatoid arthritis PLAN: 1. Encouraged to be up and about. 2. Solu-Medrol 80 q.8hr. Plan and coordination of the patient's care discussed in the presence of Wall Covering Contractor and nurse. CONDITION: Stable SCRIBED BY: FIORELLA OREILLY Soil Biology Teacher scribed while in presence of service performed by Dr. JAMAR EASTMAN on 05/04/16 (811)
[2016-05-05] MEDS: SOLU-MEDROL 125 MG IVP SCH (04:20)
[2016-05-05] MEDS: DUONEB NEB SCH ×2 (05:25→10:18)
[2016-05-05 05:32] LABS: BASOPHILS % (AUTO) 0.2 % (0.0-3.0); HEMATOCRIT 36.1 % (37.0-47.0); HEMOGLOBIN 10.9 g/dl (12.0-16.0); IMMATURE GRANULOCYTE % (AUTO) 1.1 % (0.0-5.0); LYMPHOCYTES % (AUTO) 7.9 (10.0-50.0); MEAN CORPUSCULAR HEMOGLOBIN 26.6 pg (27.0-31.0); MEAN CORPUSCULAR HGB CONC 30.2 (31.8-35.4); MONOCYTES # (AUTO) 0.3 K/uL (0.4-2.0); MONOCYTES % (AUTO) 2.4 (0-10); NEUTROPHILS % (AUTO) 88.4; PLATELET COUNT 314 10^3/uL (140-440); WHITE BLOOD COUNT 12.46 K/ul (4.6-10.2)
[2016-05-05] MEDS: ZANTAC PO SCH (05:32)
[2016-05-05] MEDS: SYNTHROID PO SCH (05:32)
[2016-05-05 05:44] LABS: ANION GAP 12.3; BUN/CREATININE RATIO 24.28; CREATININE 0.7 mg/dL (0.60-1.30); POTASSIUM 3.3 mmol/L (3.5-5.10)
[2016-05-05] MEDS: HUMULIN R SUBCUT PRN ×2 (06:11→12:14)
[2016-05-05] MEDS: ROCEPHIN 1 GM in SODIUM CHLORIDE 50 ML IV SCH (08:23)
[2016-05-05] MEDS: PLAQUENIL PO SCH (08:24)
[2016-05-05] MEDS: LIPITOR PO SCH (08:24)
[2016-05-05] MEDS: LOVENOX SUBCUT SCH (08:24)
[2016-05-05] MEDS: ZESTRIL PO SCH (08:24)
[2016-05-05] MEDS: ARAVA PO SCH (08:24)
[2016-05-05] MEDS: SYMBICORT 160-4.5 MCG INHALER IH SCH (08:24)
[2016-05-05] MEDS: ZITHROMAX PO SCH (08:24)
[2016-05-05 09:55] VITALS: BP 130/96; TEMP 97.6
--- NOTE | 2016-05-06 11:04 | DS ---
DATE OF SERVICE: 05/05/16 FINAL DIAGNOSIS: 1. COPD exacerbation secondary to the bronchitis 2. Hypertension 3. Dyslipidemia 4. Osteoarthritis 5. Rheumatoid arthritis 6. Constipation 7. Anemia of chronic disease 8. Appendectomy 9. Hypothyroidism DISCHARGE INSTRUCTIONS: Discharge the patient home. Followup with Dr. Scott as scheduled. Continue home medications. MEDICATIONS AT DISCHARGE: Lipitor Symbicort Hydroxychloroquine DUO NEB Arava Levothyroxine Lisinopril Zantac Ultram NEW PRESCRIPTIONS: Keflex 500mg twice a day for 5 days Medrol Dosepak DUO NEBS every six hours DIET INSTRUCTIONS: Regular and Cardiac ACTIVITY: Gradually resume regular activity SMOKING: Advised to quit smoking. Offered help and patient promised to quit smoking. Smoking and lung risks been discussed. DISEASE SPECIFIC EDUCATION: COPD Pneumonia risk and Pneumonia vaccination been discussed and verbalized understanding. HOSPITAL COURSE: Deloris Wilcox came to the emergency room with cough and congestion and shortness of breath. She was seen by Dr. Salguero in the emergency room. Initial ABG showed the pH 7.325, pCO2 50.6 and pO2 148. Chest x-ray was done which showed the emphysema changes only. No acute cardiopulmonary disease. The patient was admitted with the COPD exacerbation, bronchitis and mild CO2 Narcosis was there. The patient was given Azithromycin, Rocephin and DUO NEBS Q 8 hours. Continue home medications. Solu-Medrol was given at 80mg Q 8 hours. With the given treatment the patient was gradually started feeling better but the patient still has defused wheezing. Hgb dropped from 13 to 10 mostly from the hemodilution and anemia of chronic disease. Sugars were under control. BNP was 98. The patient was evaluated for the oxygen. The patient was qualified for the oxygen with patient drop in oxygen with minimal exertion which we discussed with the patient and advised continuous oxygenations. Use of the oxygen and it' s highly inflammable state been discussed with the patient and verbalized understanding. As the patient was doing better and did not have any problem she does follow Dr. Scott for the lung nodules and the CAT scan. She had an old compression deformity on the T3 per CAT on 04/15/16. At the time of discharge the patient was stable and didn't have any problem or complications. TIME SPENT: More than 45 minutes. MTDD
== END 2016-05-05 12:45 | disposition home or self-care (01) | DRG 192 ==
LOC: ED 17:18 → SCU 18:44
PROVIDERS: ADMIT Emergency Medicine; ATTEND Emergency Medicine
DX: J44.0 Chronic obstructive pulmonary disease with (acute) lower respiratory infection (principal); J20.9 Acute bronchitis, unspecified; J44.1 Chronic obstructive pulmonary disease with (acute) exacerbation; R06.02 Shortness of breath; F17.210 Nicotine dependence, cigarettes, uncomplicated; I10 Essential (primary) hypertension; E11.9 Type 2 diabetes mellitus without complications; D64.89 Other specified anemias; R06.89 Other abnormalities of breathing; R91.8 Other nonspecific abnormal finding of lung field; M19.90 Unspecified osteoarthritis, unspecified site; E03.9 Hypothyroidism, unspecified; M06.9 Rheumatoid arthritis, unspecified; K59.00 Constipation, unspecified; R26.81 Unsteadiness on feet; Z99.81 Dependence on supplemental oxygen; Z79.899 Other long term (current) drug therapy
CPT/HCPCS: 36415; 80048; 80053; 82550; 82803; 82962; 83036; 83880; 84484; 85025; 87081; 93005; 93010; 94640; 94644; 94761; 96375; 99223; 99233; 99239; 99284

== ENCOUNTER 2016-06-15 13:51 | Outpatient (CLI) ==
[2016-06-15 14:17] LABS: HEMATOCRIT 37.4 % (37.0-47.0); HEMOGLOBIN 11.6 g/dl (12.0-16.0); MEAN CORPUSCULAR HEMOGLOBIN 28.1 pg (27.0-31.0); MEAN CORPUSCULAR VOLUME 90.6 fl (81.0-99.0); RED BLOOD COUNT 4.13 10^6/ul (4.20-5.40); WHITE BLOOD COUNT 11.9 K/ul (4.6-10.2)
[2016-06-15 14:24] LABS: BILIRUBIN,URINE Negative (NEGATIVE); KETONES,URINE Negative (NEGATIVE); LEUKOCYTE ESTERASE ,URINE Negative (NEGATIVE); NITRITE,URINE Negative (NEGATIVE); PH,URINE 7.5 (5-9); PROTEIN,URINE Trace (NEGATIVE); URINE, BLOOD Negative (NEGATIVE)
[2016-06-15 14:27] LABS: ADD URINE MICROSCOPIC YES
[2016-06-15 15:40] LABS: ALBUMIN 2.6 g/dL (3.4-5.0); ANION GAP 13.2; BUN/CREATININE RATIO 8.95; CALCIUM 9.4 mg/dL (8.2-10.2); CREATININE 0.67 mg/dL (0.60-1.30); MAGNESIUM 1.9 mg/dL (1.7-2.2); PHOSPHORUS 2.2 mg/dL (2.8-4.1); POTASSIUM 3.2 mmol/L (3.5-5.10); URIC ACID 2.2 mg/dL (2.4-6.0)
[2016-06-16 11:44] LABS: URINE CREATINE 74.7 mg/dL (Not Estab.)
== END 2016-06-15 13:52 | disposition home or self-care (01) ==
LOC: LAB 13:51
PROVIDERS: ATTEND Internal Medicine Nephrology
DX: N18.1 Chronic kidney disease, stage 1 (principal); E55.9 Vitamin D deficiency, unspecified; I10 Essential (primary) hypertension
CPT/HCPCS: 36415; 80069; 81001; 82306; 82570; 83735; 83970; 84156; 84550; 85027

== ENCOUNTER 2016-07-01 11:09 | Outpatient (CLI) ==
[2016-07-02 09:08] LABS: ALBUMIN 2.5 g/dL (3.4-5.0); ALBUMIN/GLOBULIN RATIO 0.64; ANION GAP 20.4; BILIRUBIN,TOTAL 0.28 mg/dL (0.00-1.20); BUN/CREATININE RATIO 14.28; CALCIUM 10.1 mg/dL (8.2-10.2); CREATININE 0.7 mg/dL (0.60-1.30); POTASSIUM 4.4 mmol/L (3.5-5.10); TOTAL PROTEIN 6.4 g/dL (5.8-8.1)
== END 2016-07-01 11:10 | disposition home or self-care (01) ==
LOC: LAB 11:09
PROVIDERS: ATTEND Nurse Practitioner Family
DX: E03.9 Hypothyroidism, unspecified (principal); E87.6 Hypokalemia
CPT/HCPCS: 36415; 80053; 84443

== ENCOUNTER 2016-07-05 10:38 | Outpatient (CLI) ==
--- NOTE | 2016-07-05 11:46 | CT ---
EXAM: CT Abdomen without contrast. CT Pelvis without contrast. HISTORY: Nausea and vomiting for 3 weeks. COMPARISON: None available. TECHNIQUE: Multiple axial images of the abdomen and pelvis were obtained without intravenous contra st. Images were reformatted in the coronal plane. FINDINGS: Please note that evaluation of the abdominal and pelvic structures is limited due to lack of intravenous contrast. Emphysematous changes and calcified granulomatous changes noted in the lung bases. Degenerative vandana nges noted throughout the spine. Gallbladder not seen. The liver, pancreas, spleen, and adrenal glands demonstrate normal contour. No calcified renal stones or hydronephrosis detected. The bowel is normal in course and caliber without evidence for obstruction or inflammatory process. Diverticula are present in the colon. Uterus demonstrates normal contour. Urinary bladder is unre markable. No free fluid or free air identified. Atherosclerotic calcifications are present. IMPRESSION: No acute abnormality within the abdomen or pelvis.
== END 2016-07-05 10:39 | disposition home or self-care (01) ==
LOC: RAD 10:38
PROVIDERS: ATTEND Nurse Practitioner Family
DX: R11.2 Nausea with vomiting, unspecified (principal); R63.0 Anorexia

== ENCOUNTER 2016-07-14 12:31 | Outpatient (CLI) ==
--- NOTE | 2016-07-14 14:02 | CT ---
EXAM: CT chest without contrast HISTORY: Pulmonary nodule COMPARISON: CT chest 04/15/2016 and multiple prior chest x-rays TECHNIQUE: Serial axial images of the chest were obtained from the lung apices to the upper abdomen without contrast. These were viewed in multiple planes. FINDINGS: The visualized vessels demonstrate mild atherosclerotic disease and ascending aortic ect william without aneurysm or stenosis. The heart is normal in size without pericardial effusion. There is a subcarinal lymph node measuring 0.9 cm in short axis and a precarinal lymph node measuring 1 c m in diameter. No axillary lymph nodes are present.. There is no pneumothorax or effusion. There is severe emphysematous disease most pronounced in the apices. There is unchanged apical pleural thickening. Questionable nodule in the left lung apex is unchanged measuring 0.5 cm on axial images, but this appears linear fibrotic on coronals. There is a nodular density in the right upper lobe measuring 0.5 cm in diameter on image 19. There is lower lobe predominant airway thickening. There is minimal patchy ground-glass. There is a pleural-base d right lower lobe pulmonary nodule adjacent to the benign-appearing calcifications as seen in the r ight lower lobe with the adjacent new nodule measuring 1 cm in diameter best seen on coronal image 5 2 and 51. There is an additional peripheral right lower lobe pulmonary nodule on image 38 which is new measuring 0.6 cm in diameter. A new nodular consolidation in the right lower lobe measuring 0.8 cm in diameter. Calcified granulomas adjacent to the pleura in the left lower lobe are unchanged. Left upper lobe pulmonary nodules from prior examination are unchanged. Lingula. 0.5 cm nodule is unchanged. The airways are patent. The soft tissues in the upper abdomen are unremarkable. The osseous structures demonstrate sclerosi s and compression fracture at T5 which has minimally worsened since prior evaluation. IMPRESSION: 1. Multiple bilateral pulmonary nodules as described above. Some of these are new in comparison to prior evaluation and may represent inflammatory nodules, but short-interval follow-up CT in 3 month s is recommended to evaluate for change and exclude underlying neoplasm. 2. Severe emphysema is unchanged with biapical pleural fibrosis. 3. Interval mild progression of T5 compression fracture with no additional fracture or osseous abno rmality. 4. Sequela of old granulomatous disease.
== END 2016-07-14 12:32 | disposition home or self-care (01) ==
LOC: RAD 12:31
PROVIDERS: ATTEND Internal Medicine Pulmonary Disease
DX: R91.1 Solitary pulmonary nodule (principal)

== ENCOUNTER 2016-07-30 11:09 | Outpatient (CLI) ==
[2016-07-30 11:37] LABS: BASOPHILS # (AUTO) 0.1 K/uL (0-0.2); BASOPHILS % (AUTO) 0.9 % (0.0-3.0); EOSINOPHILS # (AUTO) 0.4 K/ul (0.0-0.7); EOSINOPHILS % (AUTO) 3.7 % (0.0-7.0); HEMATOCRIT 35.1 % (37.0-47.0); HEMOGLOBIN 11.1 g/dl (12.0-16.0); IMMATURE GRANULOCYTE % (AUTO) 0.3 % (0.0-5.0); LYMPHOCYTES # (AUTO) 1.3 K/uL (0.60-3.4); MEAN CORPUSCULAR HEMOGLOBIN 27.8 pg (27.0-31.0); MEAN CORPUSCULAR HGB CONC 31.6 (31.8-35.4); MONOCYTES # (AUTO) 0.7 K/uL (0.4-2.0); MONOCYTES % (AUTO) 6.2 (0-10); NEUTROPHILS # (AUTO) 9.1 K/ul (2.0-6.9); NEUTROPHILS % (AUTO) 77.9; PLATELET COUNT 443 10^3/uL (140-440); RED BLOOD COUNT 3.99 10^6/ul (4.20-5.40)
[2016-07-30 12:27] LABS: ALBUMIN 2.5 g/dL (3.4-5.0); ALBUMIN/GLOBULIN RATIO 0.6; ANION GAP 14.6; BILIRUBIN,TOTAL 0.42 mg/dL (0.00-1.20); BUN/CREATININE RATIO 14.28; CALCIUM 9.4 mg/dL (8.2-10.2); CHOL/HDL RATIO 2.2 (4.5-5.5); CREATININE 0.56 mg/dL (0.60-1.30); POTASSIUM 3.6 mmol/L (3.5-5.10); TOTAL PROTEIN 6.7 g/dL (5.8-8.1)
== END 2016-07-30 11:10 | disposition home or self-care (01) ==
LOC: LAB 11:09
PROVIDERS: ATTEND Nurse Practitioner Family
DX: E03.9 Hypothyroidism, unspecified (principal); E78.5 Hyperlipidemia, unspecified; I10 Essential (primary) hypertension; E55.9 Vitamin D deficiency, unspecified
CPT/HCPCS: 36415; 80053; 80061; 82306; 84439; 84443; 85025

== ENCOUNTER 2016-12-08 12:59 | Emergency (ER) ==
[2016-12-08 13:08] VITALS: BP 117/76; TEMP 99.3; BMI 24.2
--- NOTE | 2016-12-08 13:27 | ED.PDOC ---
General ED Provider: Dr. JOHN REYES JR Chief Complaint: Foot Pain/Injury Stated Complaint: Painful callous to bottom of rt foot near 4th toe. Has been there approx a year, but getting more painful. Difficult to walk. Hx RA.[End] has hard callus to bottom of rt foot below 4th toe--hx arthritis with toes entwined--walks on sole of foot to transport but unable due to callused area hard and tender[End]99.3 102 24 91% 117/76 10 Time Seen by Physician: 13:26 Mode of Arrival: Walk-In Information Source: Patient Exam Limitations: No limitations [facility] Nursing and Triage Documentation Reviewed and Agree: No Musculoskeletal Complaint Exam - Ankle/Foot Complaint/Exam Location of Injury: Reports: Right, Foot, Toe #3 Mechanism of Injury: Reports: No known trauma Symptoms Are: Reports: Still present Onset of Pain: Reports: Weeks Initial Severity: Moderate Current Severity: Severe Location: Reports: Discrete Character: Reports: Sharp Alleviating: Reports: Position Aggravating: Reports: Movement, Weight bearing Able to Bear Weight: Yes Associated Signs and Symptoms: Denies: Swelling, Redness, Bruising, Fever, Weakness, Numbness, Tingling Related History: Reports: Similar episode Gout Risk Factors: Reports: >40 years old, HTN Lower Extremity Findings: Present: Abnormal contour Achilles Tendon Abnormality: No Tenderness: Present: Midfoot, Metatarsals Review of Systems - Review Of Systems Constitutional: Reports: No symptoms Eyes: Reports: No symptoms Ears, Nose, Mouth, Throat: Reports: No symptoms Respiratory: Reports: No symptoms Cardiac: Reports: No symptoms GI: Reports: No symptoms : Reports: No symptoms Musculoskeletal: Reports: Joint pain, Other Skin: Reports: Lumps Neurological: Reports: No symptoms Endocrine: Reports: No symptoms Hematologic/Lymphatic: Reports: No symptoms All Other Systems: Other Past Medical History - Past Medical History Previously Healthy: No Endocrine: Reports: Hypothyroid, Dyslipidemia Cardiovascular: Reports: Hypertension Respiratory: Reports: COPD (/EMPHYSEMA) Hematological: Reports: None Gastrointestinal: Reports: None Genitourinary: Reports: None Neuro/Psych: Reports: None Musculoskeletal: Reports: Arthritis ( RHEUMATOID ARTHRITIS) Cancer: Reports: None Last Menstrual Period: unknown - Surgical History General Surgical History: Reports: Appendectomy, Orthopedic (LEFT ELBOW BILATERAL FEET ), Unknown - Family History Family History: Reports: Unknown - Social History Smoking Status: Current every day smoker, Heavy tobacco smoker Hx Substance Use: No Alcohol Screening: None Physical Exam - Physical Exam Appearance: Well-appearing Pain Distress: Moderate Skin: Warm, Dry, Normal color (tender callous 3rd MTP bilateally abour 2.5cm right exquisitely tender unable to bear weight needs debridement- local entry level chemist will not take insurance) Procedures - Additional Procedures Additional Procedures: Digital Nerve Block (marcaine subdermal proximal to right 3rd MTP lesion with near complete resolution of tenderness) Re-Evaluation - Re-Evaluation Time of Re-Evaluation: 14:17 Status: Improved (patietn request reinjection first dose 3cc near complete resolution rechekc tibial side of lesion tender improved after 2cc loca- total 5cc) Critical Care Note - Critical Care Note Total Time (mins): 0 Course - Course Orders, Labs, Meds: Orders Category Date Time Status Bupivacaine HCl Inj [Marcaine 0.25% Mdv] MEDS 12/08/16 13:43 Discontinued 1 ml INJ ONCE STA Medications Discontinued Medications Generic Name Dose Route Start Last Admin Trade Name Freq PRN Reason Stop Dose Admin Bupivacaine HCl 1 ml 12/08/16 13:43 12/08/16 14:02 Marcaine 0.25% Mdv INJ 12/08/16 13:44 1 ml ONCE STA Administration Vital Signs: Temp Pulse Resp BP Pulse Ox 12/08/16 13:00 99.3 F 102 H 24 117/76 91 L Departure - Departure Time of Disposition: 13:58 Disposition: HOME SELF-CARE Discharge Problem: Injury of foot Instructions: Plantar Fasciitis Exercises (ED) Condition: Good Pt referred to PMD for follow-up: Yes Additional Instructions: stretching massaging and moisturizers will give minimal benefit callus requires debridement follow up with entry level chemist may obtain referral from PMD return if red swollen draining or fever over 101.0 [place] for pain -- no refills Prescriptions: Hydrocodone Bit/Acetaminophen [[place] 5-325] 1 - 2 tab PO Q6HR PRN #12 tablet PRN Reason: pain Allergies/Adverse Reactions: Allergies Penicillins Allergy (Severe, Verified 12/08/16 13:35) rash Pt to get medical alert necklace Home Medications: Ambulatory Orders Hydroxychloroquine Sulfate 200 mg PO BID 03/02/16 Leflunomide [Arava] 20 mg PO DAILY 03/02/16 Tramadol HCl [Ultram] 50 mg PO BID 05/01/16 Ipratropium/Albuterol Neb [Duoneb] 1 vial NEB RTQ6H #120 vial.neb 05/05/16 Ergocalciferol (Vitamin D2) [Vitamin D2] 50,000 unit PO WEEKLY 07/02/16 Hydrocodone Bit/Acetaminophen [[place] 5-325] 1 - 2 tab PO Q6HR PRN #12 tablet
[2016-12-08] MEDS ORDERED: MARCAINE 0.25% MDV INJ STA (13:43)
== END 2016-12-08 14:19 | disposition home or self-care (01) ==
LOC: ED 12:59
DX: L84 Corns and callosities (principal); M79.671 Pain in right foot; M06.9 Rheumatoid arthritis, unspecified; F17.210 Nicotine dependence, cigarettes, uncomplicated
CPT/HCPCS: 99282

== ENCOUNTER 2017-02-07 10:03 | Outpatient (CLI) ==
--- NOTE | 2017-02-07 10:53 | CT ---
EXAM: CT of the chest without contrast History: Follow-up pulmonary nodules. Comparison: Chest CT 07/14/2016 Technique: Multiplanar CT images through the thorax were obtained without the administration of IV c ontrast Findings: Heart size is within normal limits. Great vessels are unremarkable. No axillary adenopath y. 1 cm pretracheal mediastinal lymph node is stable. 1.5 cm subcarinal lymph node is stable. Eval uation for hilar lymph nodes is limited due to lack of contrast administration. Moderate to severe emphysema again noted. Biapical lung scarring again appreciated. There are new ma ss-like areas of consolidation within the left lower lobe and right lower lobe. 7 mm lingular nodule has slightly increased in size compared to the prior study and previously measures 6 mm. The 9 mm new pleural based lingular nodule. No pneumothorax. Within the visualized upper abdomen, no acute findings. Progressive T5 compression fracture and new mild compression fracture involving superior endplate of T6. Impression: 1. New mass-like areas of consolidation within the bilateral lower lobes could be infectious/inflamm atory etiology or malignant. 2. New 9 mm pleural based lingular nodule could be infectious/inflammatory or metastatic. 3. Increasing size of 7 mm lingular nodule. 4. Emphysema. 5. No change in the mildly enlarged mediastinal lymph nodes. 6. Progressive T5 compression fracture and new mild compression fracture involving superior endplate of T6.
== END 2017-02-07 10:04 | disposition home or self-care (01) ==
LOC: RAD 10:03
PROVIDERS: ATTEND Internal Medicine Pulmonary Disease
DX: R91.1 Solitary pulmonary nodule (principal)

== ENCOUNTER 2017-04-11 20:30 | Emergency (ER) ==
[2017-04-11 20:30] VITALS: BMI 24.2
[2017-04-11 20:58] VITALS: BP 103/70; TEMP 99.7
--- NOTE | 2017-04-11 21:23 | DI ---
EXAM: Left foot, three-view. HISTORY: Left foot pain. Trauma. COMPARISON: None. FINDINGS: AP, lateral and oblique views of the left foot. There is dislocation of the second digit at the metatarsal phalangeal joint. The digit is displaced dorsally. No definite fractures are iden tified. There are no lytic or blastic lesions. Soft tissues are normal. Bone mineralization is nor mal.Mild joint narrowing is seen in the interphalangeal joints. IMPRESSION: 1. Dislocation of the second digit at the metatarsal phalangeal joint. Recommend follow-up study af ter reduction to evaluate for fracture. 2. Osteoarthritis.
--- NOTE | 2017-04-11 21:25 | DI ---
EXAM: Left toes. HISTORY: Injury. FINDINGS: AP, lateral and oblique views of the left toes. There is dislocation of the second digit at the metatarsal phalangeal joint. The digits are displaced dorsally. Joint narrowing is seen in t he interphalangeal joints. There are no erosive changes. IMPRESSION: Dislocation of the second digit at the metatarsal phalangeal joint. Recommend follow-up study after reduction to evaluate for fracture.
--- NOTE | 2017-04-11 21:36 | ED.PDOC ---
General ED Provider: Dr. POLO BRAY-ER Chief Complaint: Foot Pain/Injury Stated Complaint: i stubbed my toe 4 days ago Time Seen by Physician: 20:45 Mode of Arrival: Wheelchair Information Source: Patient Exam Limitations: No limitations Primary Care Provider: AMADOU ZAFAR Nursing and Triage Documentation Reviewed and Agree: Yes Reviewed sepsis parameters & appropriate labs ordered?: Yes System Inflammatory Response Syndrome: Not Applicable Sepsis Protocol: For patient's 13 years and over: Temp is 96.8 and below OR 101 and greater Pulse >90 BPM Resp >20/minute Acutely Altered Mental Status Are patient's symptoms suggestive of a new infection, such as: -Pneumonia -Skin, Soft Tissue -Endocarditis -UTI -Bone, Joint Infection -Implantable Device -Acute Abdominal Infection -Wound Infection -Meningitis -Blood Stream Catheter Infection -Unknown Musculoskeletal Complaint Exam - Ankle/Foot Complaint/Exam Location of Injury: Reports: Left, Toe #2 Mechanism of Injury: Reports: Trauma Onset/Duration: 4 days ago Symptoms Are: Reports: Still present Onset of Pain: Reports: Immediate Initial Severity: Mild Current Severity: Mild Location: Reports: Discrete Character: Reports: Dull, Aching, Throbbing Aggravating: Reports: Movement, Weight bearing Able to Bear Weight: Yes Associated Signs and Symptoms: Reports: Swelling. Denies: Redness, Bruising, Fever, Weakness, Numbness, Tingling Tenderness: Present: Metatarsals, Digits Differential Diagnosis: Closed Fracture, Sprain, Strain Review of Systems - Review Of Systems Constitutional: Reports: No symptoms Eyes: Reports: No symptoms Ears, Nose, Mouth, Throat: Reports: No symptoms Respiratory: Reports: No symptoms Cardiac: Reports: No symptoms GI: Reports: No symptoms : Reports: No symptoms Musculoskeletal: Reports: Other Skin: Reports: No symptoms Neurological: Reports: No symptoms Endocrine: Reports: No symptoms Hematologic/Lymphatic: Reports: No symptoms All Other Systems: Reviewed and Negative Past Medical History - Past Medical History Previously Healthy: No Endocrine: Reports: Hypothyroid, Dyslipidemia Cardiovascular: Reports: Hypertension Respiratory: Reports: COPD (/EMPHYSEMA) Hematological: Reports: None Gastrointestinal: Reports: None Genitourinary: Reports: None Neuro/Psych: Reports: None Musculoskeletal: Reports: Arthritis ( RHEUMATOID ARTHRITIS) Cancer: Reports: None Last Menstrual Period: menopausal approx 16 yrs ago - Surgical History General Surgical History: Reports: Appendectomy, Orthopedic (LEFT ELBOW BILATERAL FEET ), Unknown - Family History Family History: Reports: Unknown - Social History Smoking Status: Current every day smoker, Heavy tobacco smoker Hx Substance Use: No Alcohol Screening: None - Immunizations Tetanus Shot up to Date: No Physical Exam - Physical Exam Appearance: Well-appearing Pain Distress: Moderate Eyes: SAMANTHA, EOMI, Conjunctiva clear ENT: Ears normal, Nose normal, Oropharynx normal Neck: Supple Respiratory: Airway patent Cardiovascular: RRR, Pulses normal, No rub, No murmur GI/: Soft, Nontender, No masses, Bowel sounds normal, No Organomegaly Musculoskeletal: Limited ROM Skin: Warm, Dry, Normal color Neurological: Sensation intact, Motor intact, Reflexes intact, Cranial nerves intact, Alert, Oriented Psychiatric: Affect appropriate, Mood appropriate Interpretation - Radiology Interpretation Radiology Interpretation By: Radiologist Radiology Results: Positive Exam Interpreted: Other Critical Care Note - Critical Care Note Total Time (mins): 0 Course - Course Orders, Labs, Meds: Orders Category Date Time Status OFELIA [ED OFELIA WRAP] .ONCE EMERGENCY 04/11/17 21:33 Active ED SPLINT APPLICATION .ONCE EMERGENCY 04/11/17 21:33 Active Hydrocodone Bit/Acetaminophen [[place] 5-325] MEDS 04/11/17 21:33 Discontinued 1 tab PO ONCE STA FOOT, LEFT 3 VIEWS Stat RADS 04/11/17 20:57 Completed TOE(S), LEFT MIN 2V Stat RADS 04/11/17 20:56 Completed Medications Discontinued Medications Generic Name Dose Route Start Last Admin Trade Name Freq PRN Reason Stop Dose Admin Acetaminophen/Hydrocodone Bitart 1 tab 04/11/17 21:33 [place] 5-325 PO 04/11/17 21:34 ONCE STA Vital Signs: Temp Pulse Resp BP Pulse Ox 04/11/17 20:44 99.7 F H 99 H 20 103/70 94 L Departure - Departure Time of Disposition: 21:36 Disposition: HOME SELF-CARE Discharge Problem: Dislocated toe Qualifiers: Encounter type: initial encounter Laterality: left Qualified Code(s): S93.105A - Unspecified dislocation of left toe(s), initial encounter Instructions: Foot Fracture in Adults (ED) Condition: Good Pt referred to PMD for follow-up: Yes Additional Instructions: norco 5mg q 6hrs prn yoli #10--careful wtih weight bearing--talk to Austyn tomorrow about referrl to ortho or podiatry Allergies/Adverse Reactions: Allergies Penicillins Allergy (Severe, Verified 04/11/17 20:53) rash Pt to get medical alert necklace Home Medications: Ambulatory Orders Hydroxychloroquine Sulfate 200 mg PO BID 03/02/16 Leflunomide [Arava] 20 mg PO DAILY 03/02/16 Tramadol HCl [Ultram] 50 mg PO BID 05/01/16 Ipratropium/Albuterol Neb [Duoneb] 1 vial NEB RTQ6H #120 vial.neb 05/05/16 Ergocalciferol (Vitamin D2) [Vitamin D2] 50,000 unit PO WEEKLY 07/02/16 Hydrocodone Bit/Acetaminophen [[place] 5-325] 1 - 2 tab PO Q6HR PRN #12 tablet Disposition Discussed With: Patient, Family
[2017-04-11] MEDS: NORCO 5-325 PO STA (21:51)
== END 2017-04-11 21:56 | disposition home or self-care (01) ==
LOC: ED 20:30
DX: S93.105A Unspecified dislocation of left toe(s), initial encounter (principal); W22.8XXA Striking against or struck by other objects, initial encounter; F17.210 Nicotine dependence, cigarettes, uncomplicated
CPT/HCPCS: 99283

== ENCOUNTER 2017-12-01 16:31 | Inpatient (IN) ==
[2017-12-01] MEDS ORDERED: DUONEB NEB STA ×2 (17:04→17:46)
[2017-12-01] MEDS ORDERED: SODIUM CHLORIDE 1,000 ML IV STA (17:05)
[2017-12-01] MEDS ORDERED: SOLU-MEDROL 125 MG IVP STA (17:06)
--- NOTE | 2017-12-01 17:51 | ED.PDOC ---
General ED Provider: Dr. DANY WISEMAN Chief Complaint: Nausea/Vomiting Stated Complaint: nausea, vomiting , cough, shortness of breath Time Seen by Physician: 16:33 (admitts to smoking nearly 2 PK/DAY) Mode of Arrival: Walk-In Information Source: Patient, Family Exam Limitations: No limitations Primary Care Provider: MADINA SCRUGGS Nursing and Triage Documentation Reviewed and Agree: Yes Does patient meet sepsis criteria?: No If yes, has appropriate treatment been initiated?: No System Inflammatory Response Syndrome: Not Applicable (ADMITTED TO SMOKING ALOT AND HAS HAS 2 DAYS OF ONGOING NAUSEA ) Sepsis Protocol: For patient's 13 years and over: Temp is 96.8 and below OR 101 and greater Pulse >90 BPM Resp >20/minute Acutely Altered Mental Status Are patient's symptoms suggestive of a new infection, such as: -Pneumonia -Skin, Soft Tissue -Endocarditis -UTI -Bone, Joint Infection -Implantable Device -Acute Abdominal Infection -Wound Infection -Meningitis -Blood Stream Catheter Infection -Unknown GI Complaint Exam - Vomiting/Diarrhea Complaint/Exam Onset/Duration: 2 DAYS Symptoms Are: Resolved Episodes of Vomiting over last 24 Hours: 4 Episodes of Diarrhea Over Last 24 Hours: 0 Initial Severity: Mild Current Severity: None Character of Vomiting: Reports: Non-bilious Character of Diarrhea: Reports: Bloody Aggravating: Reports: None Alleviating: Reports: None Associated Signs and Symptoms: Reports: Abdominal pain. Denies: Dizziness, Light-headedness, Melena, Hematemesis, Fever, Cramping Related History: Reports: Similar episode (COPD) Last Oral Intake: TODAY Last Bowel Movement: TODAY Non-GI Risk Factors: Reports: None Surgical Obstruction Risk Factors: Reports: None Related Surgical History: Reports: None Abdominal Findings: Present: None Kussmaul Respirations Present: No Differential Diagnoses: Dehydration, Viral Gastroenteritis, Other (COPD ) Review of Systems - Review Of Systems Constitutional: Reports: Malaise Eyes: Reports: No symptoms Ears, Nose, Mouth, Throat: Reports: No symptoms Respiratory: Reports: Cough, Short of air, Wheezing, Other (ON HOME O2 ) Cardiac: Reports: No symptoms GI: Reports: Abdominal pain, Nausea, Poor fluid intake, Vomiting : Reports: No symptoms Musculoskeletal: Reports: No symptoms Skin: Reports: No symptoms Neurological: Reports: No symptoms Endocrine: Reports: No symptoms Hematologic/Lymphatic: Reports: No symptoms All Other Systems: Reviewed and Negative Past Medical History - Past Medical History Previously Healthy: No Endocrine: Reports: Hypothyroid, Dyslipidemia Cardiovascular: Reports: Hypertension Respiratory: Reports: COPD (/EMPHYSEMA) Hematological: Reports: None Gastrointestinal: Reports: None Genitourinary: Reports: None Neuro/Psych: Reports: None Musculoskeletal: Reports: Arthritis ( RHEUMATOID ARTHRITIS) Cancer: Reports: None Last Menstrual Period: menopause - Surgical History General Surgical History: Reports: Appendectomy, Orthopedic (LEFT ELBOW BILATERAL FEET ), Unknown - Family History Family History: Reports: Unknown - Social History Smoking Status: Current every day smoker, Heavy tobacco smoker Hx Substance Use: No Alcohol Screening: None Physical Exam - Physical Exam Appearance: Ill-appearing Ill-appearing: Mild Eyes: SAMANTHA, EOMI, Conjunctiva clear ENT: Ears normal, Nose normal, Oropharynx normal Respiratory: Rhonchi (BASES BILATERAL) Cardiovascular: RRR, Pulses normal, No rub, No murmur GI/: Soft, Nontender, No masses, Bowel sounds normal, No Organomegaly Musculoskeletal: Normal strength, ROM intact, No edema, No calf tenderness Skin: Warm, Dry, Normal color Neurological: Sensation intact, Motor intact, Reflexes intact, Cranial nerves intact, Alert, Oriented Psychiatric: Affect appropriate, Mood appropriate Critical Care Note - Critical Care Note Total Time (mins): 0 Course - Course Hematology/Chemistry: 12/01/17 17:20 Orders, Labs, Meds: Lab Review 12/01/17 17:20 WBC 11.31 H RBC 4.46 Hgb 11.7 L Hct 38.1 MCV 85.4 MCH 26.2 L MCHC 30.7 L RDW Coeff of Eze 14.5 Plt Count 400 Immature Gran % (Auto) 0.3 Neut % (Auto) 74.7 Lymph % (Auto) 15.1 Bacon % (Auto) 5.6 Eos % (Auto) 3.0 Baso % (Auto) 1.3 Immature Gran # (Auto) 0.0 Neut # (Auto) 8.5 H Lymph # (Auto) 1.7 Bacon # (Auto) 0.6 Eos # (Auto) 0.3 Baso # (Auto) 0.2 Orders Category Date Time Status ABG DRAW REQUEST Stat CARDIO 12/01/17 17:05 Ordered EKG-(ED ONLY) Stat CARDIO 12/01/17 17:05 Ordered NEBULIZER TREATMENT Stat CARDIO 12/01/17 17:04 Ordered ED IV/MEDIPORT/POWERPORT .ONCE EMERGENCY 12/01/17 17:05 Active ABG Stat LAB 12/01/17 17:05 Ordered CBC W/ AUTO DIFF Stat LAB 12/01/17 17:20 Completed COMPREHENSIVE METABOLIC PANEL Stat LAB 12/01/17 17:20 Received CREATINE KINASE Stat LAB 12/01/17 17:20 Received TROPONIN I Stat LAB 12/01/17 17:20 Received 0.9 % Sodium Chloride [Saline Flush] MEDS 12/01/17 17:05 Active 1 syr IVF PRN PRN Ipratropium/Albuterol Neb [Duoneb] MEDS 12/01/17 17:04 Discontinued 1 vial NEB ONCE STA Ipratropium/Albuterol Neb [Duoneb] MEDS 12/01/17 17:46 Discontinued 1 vial NEB ONCE STA Methylprednisolone Sod Succ/Pf [Solu-Medrol 125 mg] MEDS 12/01/17 17:06 Discontinued 80 mg IVP ONCE STA Sodium Chloride 0.9% [Sodium Chloride] 1,000 ml MEDS 12/01/17 17:05 Active IV 100 mls/hr CT ABDOMEN/PELVIS WO CONTRAST Stat RADS 12/01/17 17:[address] CHEST W/O CONTRAST Stat RADS 12/01/17 17:04 Ordered Medications Generic Name Dose Route Start Last Admin Trade Name Freq PRN Reason Stop Dose Admin Sodium Chloride 1,000 mls @ 100 mls/hr 12/01/17 17:05 Sodium Chloride IV 12/02/17 03:04 .Q10H STA Sodium Chloride 1 syr 12/01/17 17:05 Saline Flush IVF PRN PRN To flush IV Discontinued Medications Generic Name Dose Route Start Last Admin Trade Name Freq PRN Reason Stop Dose Admin Albuterol/Ipratropium 1 vial 12/01/17 17:04 Duoneb NEB 12/01/17 17:05 ONCE STA Albuterol/Ipratropium 1 vial 12/01/17 17:46 Duoneb NEB 12/01/17 17:47 ONCE STA Methylprednisolone Sodium Succinate 80 mg 12/01/17 17:06 Solu-Medrol 125 Mg IVP 12/01/17 17:07 ONCE STA Vital Signs: Temp Pulse Resp BP Pulse Ox 12/01/17 16:32 99.6 F 106 H 20 105/71 92 L Departure - Departure Time of Disposition: 19:00 Disposition: ADMITTED INPATIENT Discharge Problem: Nausea, Vomiting, COPD exacerbation Instructions: COPD (Chronic Obstructive Pulmonary Disease) (ED) Condition: Good Pt referred to PMD for follow-up: Yes IPMP verified?: No Additional Instructions: Please call your Family Physician as soon as possible to schedule a follow-up appointment. Allergies/Adverse Reactions: Allergies Penicillins Allergy (Severe, Verified 12/01/17 16:42) rash Pt to get medical alert necklace Home Medications: Ambulatory Orders Hydroxychloroquine Sulfate 200 mg PO BID 03/02/16 Leflunomide [Arava] 20 mg PO DAILY 03/02/16 Ipratropium/Albuterol Neb [Duoneb] 1 vial NEB RTQ6H #120 vial.neb 05/05/16 Ergocalciferol (Vitamin D2) [Vitamin D2] 50,000 unit PO WEEKLY 07/02/16 Albuterol Sulfate [Proair Hfa] 2 puff IH Q6H 12/01/17 Disposition Discussed With: Patient, Family
--- NOTE | 2017-12-01 18:27 | CT ---
EXAM: CT scan of the abdomen and pelvis without contrast HISTORY: Nausea TECHNIQUE: Helical imaging of the abdomen pelvis was performed without contrast. 3 mm thin axial im ages and coronal and sagittal reconstructions were provided for interpretation. Comparison CT scan of the abdomen and pelvis dated 07/05/2016. FINDINGS: The liver, spleen, pancreas, adrenal glands appear normal. The proximal ureters are josef l size. There is a small nonobstructing calculus seen within the upper pole of the left kidney. The re is no free air. The helical images obtained through the pelvis demonstrate a normal appearance of the rectum, urinary bladder. There is no free fluid seen within the pelvis. There is diverticular disease of the sigmoi d colon without acute inflammation. The appendix was not seen. No definite inflammatory changes are seen in the right lower quadrant. Consolidative changes are seen within the lung bases bilaterally. Refer to the CT scan of the chest performed on the same day for further details. IMPRESSION: There is no bowel obstruction or acute inflammatory change seen within the abdomen and p jassi. There is no ureteral obstruction. Diverticular disease of the sigmoid colon without acute inflammation.
--- NOTE | 2017-12-01 18:35 | CT ---
EXAM: CT chest without intravenous contrast 12/01/2017. Sagittal and coronal reformatted images obt ained HISTORY: Cough. Chronic obstructive pulmonary disease COMPARISON: 02/07/2017 FINDINGS: The heart size appears within normal limits. No pericardial effusion. Severe emphysematous changes. The comparison study describes a mass within the left lower lobe. This has increased in size and has spiculated margins. The appearance is most suggestive of malignancy. On image 49 this measures 3.9 x 4.1 cm diameter. There is adjacent mass slightly more posterior on image 53 which has also increa sed. This measures approximately 1.7 x 1.9 cm diameter. Additional malignancy not excluded. Atelectasis and consolidation throughout the dependent aspect of the right lung. Within the dependen t aspect of the right lung base consolidation has increased. This has developed cavitation with air- fluid level.. This can be seen on image 46. This area measures approximately 9.6 x 3.7 cm diameter. This could represent cavitary pneumonia versus cavitary neoplasm. There are additional nodules within the right lung base. Right middle lobe nodule on image 45 measur es 6 mm diameter and is increased in size. Also on image 45 there is a right lower lobe nodule the l ateral aspect of the chest which measures 10 mm diameter. This shows a focal central cavitation. Th is has also increased. Limited views of the upper abdomen show no acute abnormality. Partial compression fracture of T5 and the superior endplate of T6 appears stable. IMPRESSION: 1. Severe emphysema 2. The previously described masses within the left lung base have increased in size. These have spi culated margins and are suspicious for neoplasm. Further workup is recommended. If these have not a lready been characterized then biopsy and/or PET CT would be recommended. 3. Consolidation within the right lower lobe has increased in size and now has air-fluid level. Thi s may represent cavitary pneumonia versus cavitary neoplasm. Further characterization of this area i s also recommended. 4. At least two additional small nodules within the right lung base with reference images measuremen ts above. These have increased and may represent additional pneumonia versus malignancy.
[2017-12-01] MEDS: DUONEB NEB SCH ×2 (19:50→23:00)
[2017-12-01 19:56] VITALS: BMI 18.9
[2017-12-01] MEDS: SODIUM CHLORIDE 1,000 ML IV SCH (20:14)
[2017-12-01] MEDS ORDERED: LEVAQUIN 500 MG in PREMIX 100 ML D5W 1 BAG IV STA (20:46)
[2017-12-01] MEDS ORDERED: LEVAQUIN 100 ML IV ONE (21:03)
[2017-12-01] MEDS: SOLU-MEDROL 40 MG IVP SCH (21:08)
[2017-12-02] MEDS ORDERED: ATIVAN IVP STA (00:59)
[2017-12-02] MEDS ORDERED: ATIVAN ONE (01:04)
[2017-12-02] MEDS: DUONEB NEB SCH ×4 (04:48→22:44)
[2017-12-02] MEDS: SODIUM CHLORIDE 1,000 ML IV SCH (06:22)
[2017-12-02] MEDS: ZESTRIL PO SCH ×2 (08:54→09:00)
[2017-12-02] MEDS: LIPITOR PO SCH ×2 (08:54→08:59)
[2017-12-02] MEDS: SYNTHROID PO SCH ×2 (08:55→09:00)
[2017-12-02] MEDS: SOLU-MEDROL 40 MG IVP SCH ×2 (08:55→21:27)
[2017-12-02] MEDS: LOVENOX SUBCUT SCH (08:56)
[2017-12-02] MEDS: ZOFRAN 4 MG/2 ML IVP SCH ×3 (10:30→21:26)
[2017-12-02] MEDS ORDERED: PHENERGAN 25 MG/ML VIAL 12.5 MG in SODIUM CHLORIDE 50 ML IV STA (23:34)
[2017-12-02] MEDS ORDERED: PHENERGAN 25 MG/ML VIAL ONE (23:39)
[2017-12-03] MEDS: SODIUM CHLORIDE 1,000 ML IV SCH ×2 (03:07→17:43)
[2017-12-03] MEDS: ZOFRAN 4 MG/2 ML IVP SCH ×4 (03:36→21:33)
[2017-12-03] MEDS: DUONEB NEB SCH ×4 (04:42→22:19)
[2017-12-03] MEDS: SYNTHROID PO SCH (05:55)
[2017-12-03] MEDS: ZESTRIL PO SCH (09:36)
[2017-12-03] MEDS: LIPITOR PO SCH (09:36)
[2017-12-03] MEDS: LOVENOX SUBCUT SCH (09:37)
[2017-12-03] MEDS: SOLU-MEDROL 40 MG IVP SCH ×2 (09:37→21:33)
[2017-12-04] MEDS ORDERED: ATIVAN PO STA (00:40)
[2017-12-04] MEDS: DUONEB NEB SCH ×4 (04:48→22:48)
[2017-12-04] MEDS: SODIUM CHLORIDE 1,000 ML IV SCH (06:08)
[2017-12-04] MEDS: ZOFRAN 4 MG/2 ML IVP SCH ×3 (06:23→22:16)
[2017-12-04] MEDS: CARAFATE PO SCH ×4 (06:24→22:18)
[2017-12-04] MEDS: SYNTHROID PO SCH (06:24)
[2017-12-04] MEDS: ZANTAC PO SCH ×2 (06:24→17:24)
[2017-12-04] MEDS: ZESTRIL PO SCH (08:52)
[2017-12-04] MEDS: LIPITOR PO SCH (08:52)
[2017-12-04] MEDS: SOLU-MEDROL 40 MG IVP SCH ×2 (08:53→22:15)
[2017-12-04] MEDS: LOVENOX SUBCUT SCH (08:53)
[2017-12-04] MEDS: ZITHROMAX PO SCH (09:43)
[2017-12-05] MEDS: ZOFRAN 4 MG/2 ML IVP SCH ×2 (03:30→09:36)
[2017-12-05] MEDS: DUONEB NEB SCH ×2 (04:42→11:14)
[2017-12-05 05:57] VITALS: BP 102/65; TEMP 98
[2017-12-05] MEDS: SYNTHROID PO SCH (06:00)
[2017-12-05] MEDS: CARAFATE PO SCH ×2 (06:13→12:46)
[2017-12-05] MEDS: ZANTAC PO SCH (06:15)
[2017-12-05] MEDS: SODIUM CHLORIDE 1,000 ML IV SCH (07:47)
[2017-12-05] MEDS: ZESTRIL PO SCH (09:36)
[2017-12-05] MEDS: ZITHROMAX PO SCH (09:36)
[2017-12-05] MEDS: SOLU-MEDROL 40 MG IVP SCH (09:36)
[2017-12-05] MEDS: LIPITOR PO SCH (09:36)
[2017-12-05] MEDS: LOVENOX SUBCUT SCH (09:36)
--- NOTE | 2017-12-05 21:05 | PCM.HOSP ---
- Initial Hospital Care [id number] 70 Minutes Bedside ([id number]): 12/01 - Subsequent Care [id number] 25 Minutes per Day ([id number]): 12/04 [id number] 35 Minutes per Day ([id number]): 12/02. 12/03 - Hospital Discharge [id number] More than 30 Minutes ([id number]): 12/05
--- NOTE | 2017-12-06 08:51 | PN ---
DATE OF SERVICE: 12/02/17 SUBJECTIVE: The patient was admitted with COPD exacerbation and bronchitis. CT chest showed lung mass with spiculated pattern most likely significant for lung cancer. The patient is not aware of this. She still has cough, congestion and has some shortness of breath. We talked about the lung mass and the patient is sad at this time. REVIEW OF SYSTEMS: CONSTITUTIONAL: No fever, no chills. HEENT: Normal. ENDOCRINE: No weight gain, no weight loss. CVS: No angina symptoms. No CHF symptoms. No palpitations. No atypical chest pain for CAD. Shortness of breath. No PND, no orthopnea. RESPIRATORY: Cough and congestion. No hemoptysis. GI: No nausea, no vomiting. No abdominal pain. : No hematuria. No polyuria. MUSCULOSKELETAL: No joint swelling. PSYCHIATRIC: Not anxious. No depression. No suicidal thoughts. No homicidal thoughts. SKIN: Intact. No rash. PHYSICAL EXAMINATION: V/S: BP 96/63, respiratory rate 20, heart rate 91, temprature 98.1, saturation 20 on 2L. GENERAL: Cachetic lady lying in bed. HEENT: Normocephalic, atraumatic. Mucosa dry. Pallor positive. No icterus. NECK: Supple. No JVD, no carotid bruit. No lymphadenopathy. LUNGS: Decreased breath sounds with basilar crackles. Mild expiratory wheezing. HEART: S1, S2 normal. No S3. No murmur, gallop or regurgitation. ABDOMEN: Soft, nontender. Bowel sounds active. No rigidity. No rebound or guarding. No CVA tenderness. EXTREMITIES: Deformed upper extremities from rheumatoid arthritis. No cyanosis, clubbing or pedal edema. MUSCULOSKELETAL: No joint swelling. NEUROLOGIC: Awake, alert. No focal deficit. LYMPHATIC: No lymph nodes palpable. SKIN: Intact. LABS: White count 4.80, hemoglobin 10.3, hematocrit 34.1, platelet count 329. Sodium 132, potassium 3.5, chloride 101, bicarb 22, BUN 9, creatinine 0.66, glucose 227. ASSESSMENT: 1. COPD EXACERBATION 2. LUNG MASS 3. RHEUMATOID ARTHRITIS 4. CAD 5. ANGINA 6. GERD 7. HYPOTHYROIDISM PLAN: 1. Continue Lovenox 2. Levofloxacin 3. Solu-Medrol 40 q.8 4. IV fluids 5. Daily I & O's TIME SPENT: More than 35 minutes MTDD
--- NOTE | 2017-12-06 09:01 | PN ---
DATE OF SERVICE: 12/03/17 SUBJECTIVE: This 67-year-old female was admitted with COPD exacerbation, bronchitis and left -sided lung mass. Discussed with the patient's daughter and sister in detail about the spiculated lung mass and most consistent with lung tumor. The patient has seen the tobacco sizer in the past and evaluated for lung mass in the past. She never had a bronchoscopy because of the severe COPD and rheumatic lung disease so they didn't want to put patient under anesthesia. After discussing all the possibilities, the patient is willing to see an oncologist as outpatient. REVIEW OF SYSTEMS: CONSTITUTIONAL: No fever, no chills. HEENT: Normal. ENDOCRINE: No weight gain, no weight loss. CVS: No angina symptoms. No CHF symptoms. No palpitations. No atypical chest pain for CAD. No shortness of breath. No PND, no orthopnea. RESPIRATORY: Cough and congestion. No hemoptysis. GI: Nausea, no vomiting. No abdominal pain. : No hematuria. No polyuria. MUSCULOSKELETAL: No joint swelling. PSYCHIATRIC: Not anxious. No depression. No suicidal thoughts. No homicidal thoughts. SKIN: Intact. No rash. PHYSICAL EXAMINATION: V/S: BP 101/68, respiratory rate 16, heart rate 96, temperature 98.2, saturation 99%. GENERAL: Cachetic lady lying in bed, not in any distress. HEENT: Normocephalic, atraumatic. Mucosa dry. Pallor positive. No icterus. NECK: Supple. No JVD, no carotid bruit. No lymphadenopathy. LUNGS: Clear to auscultation. No rales or rhonchi. HEART: S1, S2 normal. No S3. No murmur, gallop or regurgitation. ABDOMEN: Soft, nontender. Bowel sounds active. No rigidity. No rebound or guarding. No CVA tenderness. EXTREMITIES: The patient has hammertoes. No cyanosis, clubbing or pedal edema. MUSCULOSKELETAL: No joint swelling. NEUROLOGIC: Awake, alert. No focal deficit. LYMPHATIC: No lymph nodes palpable. SKIN: Intact. LABS: White count 14.43, hemoglobin 9.5, hematocrit 35.9, platelet count 396. Sodium 136, potassium 3.8, chloride 101, bicarb 27, BUN 10, creatinine 0.71, glucose 287. ASSESSMENT: 1. COPD EXACERBATION AND BRONCHITIS 2. LEFT LUNG MASS, SPICULATED, MOST LIKELY LUNG CANCER 3. RHEUMATOID ARTHRITIS 4. CHRONIC OBSTRUCTIVE PULMONARY DISEASE 5. GERD 6. OSTEOARTHRITIS 7. DJD SPINE 8. HYPOTHYROIDISM 9. VOMITING PLAN: 1. Continue Duonebs 2. Solu-Medrol twice a day 3. Will start the patient on Carafate and Zantac for vomiting 4. Discussed about lung mass and need for further evaluation, verbalized understanding. TIME SPENT: More than 35 minutes MTDD
--- NOTE | 2017-12-06 09:07 | PN ---
DATE OF SERVICE: 12/04/17 SUBJECTIVE: Cough and congestion. No shortness of breath. No fever. No more nausea or vomiting at this time. The family is worried about the lung mass and how to reevaluate. I reassured the family and told that we are going to get outpatient consultation with oncologist and new scholastic aptitude test grader for left spiculated lung mass. REVIEW OF SYSTEMS: CONSTITUTIONAL: No fever, no chills. HEENT: Normal. ENDOCRINE: No weight gain, no weight loss. CVS: No angina symptoms. No CHF symptoms. No palpitations. No atypical chest pain for CAD. No shortness of breath. No PND, no orthopnea. RESPIRATORY: No cough, no hemoptysis. GI: No nausea, no vomiting. No abdominal pain. : No hematuria. No polyuria. MUSCULOSKELETAL: No joint swelling. PSYCHIATRIC: Not anxious. No depression. No suicidal thoughts. No homicidal thoughts. SKIN: Intact. No rash. PHYSICAL EXAMINATION: V/S: BP 94/64, respiratory rate 16, heart rate 81, temperature 97.7. GENERAL: Cachetic lady lying in bed, not in any distress. HEENT: Normocephalic, atraumatic. NECK: Supple. No JVD, no carotid bruit. No lymphadenopathy. LUNGS: Decreased breath sounds with basilar crackles. HEART: S1, S2 normal. No S3. No murmur, gallop or regurgitation. ABDOMEN: Soft, nontender. Bowel sounds active. No rigidity. No rebound or guarding. No CVA tenderness. EXTREMITIES: No cyanosis, clubbing or pedal edema. MUSCULOSKELETAL: No joint swelling. NEUROLOGIC: Awake, alert. No focal deficit. LYMPHATIC: No lymph nodes palpable. SKIN: Intact. LABS: White count 1.43, hemoglobin 9.5, hematocrit 30.9, platelet count 396. Sodium 136, potassium 3.8, chloride 101, bicarb 27, BUN 10, creatinine 0.71, glucose 287. ASSESSMENT: 1. COPD EXACERBATION SECONDARY TO BRONCHITIS 2. LEFT LUNG SPICULATED MASS, MOST LIKELY LUNG CANCER 3. GASTRITIS 4. RHEUMATOID ARTHRITIS 5. CACHEXIA 6. OSTEOARTHRITIS 7. HAMMERTOES PLAN: 1. Continue Lovenox 2. Duonebs 3. Lisinopril 4. Zantac 5. Z-pack TIME SPENT: More than 35 minutes MTDD
--- NOTE | 2017-12-06 11:03 | DS ---
DATE OF SERVICE: 12/05/17 FINAL DIAGNOSIS: 1. COPD EXACERBATION SECONDARY TO BRONCHITIS 2. LEFT LOWER LUNG MASS SUSPICIOUS FOR MALIGNANCY 3. HYPERTENSION 4. DYSLIPIDEMIA 5. OSTEOARTHRITIS 6. RHEUMATOID ARTHRITIS 7. GERD 8. ANEMIA 9. CHRONIC HYPOTHYROIDISM 10. APPENDECTOMY 11. CATARACT SURGERY 12. FOOT SURGERY 13. CURRENT EVERY DAY SMOKER DISCHARGE INSTRUCTIONS: Followup appointment at [facility] on . Dr. Robbins followup on . MEDICATIONS AT DISCHARGE: Lipitor Symbicort Flonase Ipratropium Levothyroxine Lisinopril Zantac Proair Hydroxychloroquine Leflunomide NEW PRESCRIPTIONS: Zithromax 250 mg one p.o. daily for 3 more days Prednisone 10 mg one p.o. twice daily with food for 5 days DIET INSTRUCTIONS: Cardiac and Healthy. ACTIVITY: Get plenty of rest at home. Gradually increase your activity according to your toleration. SMOKING: N/A DISEASE SPECIFIC EDUCATION: COPD Risk of pneumonia needing pneumonia vaccination, which has been discussed Left lung mass, spiculated, high risk for lung cancer discussed. HOSPITAL COURSE: This is a 67-year-old female who came to the emergency room with cough, congestion and shortness of breath. ABG showed pH 7.406, pc02 39.2, p02 102. CT abdomen and pelvis was normal. The patient was also vomiting and nauseous. CT chest showed spiculated mass in the left lung. At that time, the patient was admitted to the hospital for COPD exacerbation and bronchitis. The patient is allergic to Penicillin. We started the patient on Levofloxacin, Solu-Medrol q.8hr, breathing treatment. Discussed about the left lung mass and spiculated area which is most likely the lung cancer. The patient did follow with the lung doctor in the past for lung nodule. The CT scan done on February 2017 showed lung nodule but no mass. The patient did say that she has seen the lung doctor and they were suspecting cancer but as patient has been high risk for sedation because of lung problem and rheumatoid arthritis, she had not had a biopsy done. The patient's daughter and sister understand the situation. Gradually the patient's shortness of breath was getting better. She still had nausea and vomiting. CT of the abdomen did not show any acute findings. Zofran was given. With the given treatment, the patient started feeling better, started keeping food down and did not have any problems. Hemoglobin had been stable around 9.5. BUN and creatinine became normal. As the patient had been doing good, did not have any problems, the patient was discharged home. TIME SPENT: MORE THAN 65 MINUTES MTDD
== END 2017-12-05 14:09 | disposition home or self-care (01) | DRG 392 ==
LOC: ED 16:31 → MEDSURG B 18:39
PROVIDERS: ADMIT Emergency Medicine; ATTEND Emergency Medicine
DX: R11.2 Nausea with vomiting, unspecified (principal); J44.1 Chronic obstructive pulmonary disease with (acute) exacerbation; R64 Cachexia; R06.02 Shortness of breath; R10.9 Unspecified abdominal pain; R91.8 Other nonspecific abnormal finding of lung field; M19.90 Unspecified osteoarthritis, unspecified site; M06.9 Rheumatoid arthritis, unspecified; M47.9 Spondylosis, unspecified; M20.40 Other hammer toe(s) (acquired), unspecified foot; J40 Bronchitis, not specified as acute or chronic; I10 Essential (primary) hypertension; I25.119 Atherosclerotic heart disease of native coronary artery with unspecified angina pectoris; E78.5 Hyperlipidemia, unspecified; E03.9 Hypothyroidism, unspecified; K21.9 Gastro-esophageal reflux disease without esophagitis; K29.70 Gastritis, unspecified, without bleeding; D64.9 Anemia, unspecified; F17.220 Nicotine dependence, chewing tobacco, uncomplicated; Z72.0 Tobacco use
CPT/HCPCS: 36415; 80053; 82550; 82803; 84484; 85025; 93005; 93010; 94640; 96361; 96374; 96375; 99284

== ENCOUNTER 2017-12-26 15:43 | Outpatient (CLI) ==
--- NOTE | 2017-12-26 17:08 | DI ---
EXAM: Two views of the chest. History: Chest pain. Comparison: Chest CT 12/01/2017 Findings: Heart size is within normal limits. Emphysema. Right greater than left bibasilar lung in filtrates. There may be a cavitary lesion within the left lower lobe. Small bilateral pleural effusi ons. No pneumothorax. No acute osseous abnormalities. Stable chronic compression deformity within t he upper thoracic spine Impression: 1. Right greater than left bibasilar lung infiltrate suspicious for pneumonia. 2. Probable cavitary lesion within the left lower lobe. 3. Emphysema
== END 2017-12-26 15:44 | disposition home or self-care (01) ==
LOC: RHC-LAB 15:43
PROVIDERS: ATTEND Nurse Practitioner Family
DX: R52 Pain, unspecified (principal); R73.9 Hyperglycemia, unspecified; D64.9 Anemia, unspecified; E03.9 Hypothyroidism, unspecified; E78.5 Hyperlipidemia, unspecified; S91.302A Unspecified open wound, left foot, initial encounter
CPT/HCPCS: 36415; 80053; 80061; 83036; 84443; 85025; 87070

== ENCOUNTER 2018-01-02 12:50 | Outpatient (CLI) ==
--- NOTE | 2018-01-04 10:30 | MAMMO ---
EXAM: Bilateral digital screening mammogram (2-D and 3-D) History: Screening Comparison: Bilateral mammogram 02/16/2016 Findings: MLO and CC views of bilateral breasts demonstrate scattered fibroglandular breast parenchy ma. CAD was reviewed by the radiologist. Tomosynthesis was performed. No developing masses. There are new grouped calcifications within the upper-outer quadrant of the left breast posterior depth. No architectural distortions Impression: Indeterminate new grouped calcifications within the upper-outer quadrant of the left fantasma ast. Recommend further evaluation with spot magnification views and a ML view. BIRADS 0
== END 2018-01-02 12:51 | disposition home or self-care (01) ==
LOC: RAD 12:50
PROVIDERS: ATTEND Nurse Practitioner Family
DX: Z12.31 Encounter for screening mammogram for malignant neoplasm of breast (principal)
CPT/HCPCS: 77067

== ENCOUNTER 2018-01-06 09:52 | Outpatient (CLI) ==
--- NOTE | 2018-01-09 11:39 | MAMMO ---
EXAM: Digital diagnostic left breast mammogram HISTORY: Mammographic calcification COMPARISON: None FINDINGS: Digital lateral view left breast was performed. Tomosynthesis was performed. Spot son prema magnification views left breast were performed. There are heterogeneous grouped calcifications i n the upper outer quadrant of the left breast that are probably benign. IMPRESSION: Probably benign left breast calcifications. Diagnostic mammogram. Followup recommended in 6 months to ensure stability. BIRADS category 3, probably benign
== END 2018-01-06 09:53 | disposition home or self-care (01) ==
LOC: RAD 09:52
PROVIDERS: ATTEND Nurse Practitioner Family
DX: R92.1 Mammographic calcification found on diagnostic imaging of breast (principal)